=== PATIENT | female | born 1945 | race Caucasian/White ===

== ENCOUNTER 2023-10-31 12:22 | Emergency (ER) | payer MEDICARE, OTHER, SELFPAY ==
[2023-10-31 12:25] VITALS: BP 109/62
--- NOTE | 2023-10-31 12:26 | ED.GENMED ---
History of Present Illness
General
Chief Complaint: Head Injury
Time Seen by Provider: 10/31/23 12:24
History of Present Illness
History of Present Illness:
HPI: The patient presents from [facility] for evaluation after a witnessed fall. She is not on any anticoagulation or antiplatelet. She did have signs of head injury. The patient is clearly a very poor historian with advanced dementia.
EXAM:
GENERAL: Appears in no distress
HEENT: Moist oral mucosa
HEAD: There is evidence of hematoma to the right side of the face
C-SPINE: There is no midline C-spine tenderness
CARDIOVASCULAR: Regular rate and rhythm
PULMONARY: No respiratory distress, breathing is nonlabored, equal and clear breath sounds
ABDOMEN: Soft and nontender with no peritoneal signs
NEUROLOGIC: The patient has evidence of dementia, not oriented to month or place, strength equally decreased in all extremities
EXTREMITIES: The left lower extremity is held in marked internal rotation at the hip
PYSCHIATRIC: Very limited historian, poor insight and judgment
ED COURSE:
12:55 PM: I initially evaluated patient
NUMBER AND COMPLEXITY OF PROBLEMS ADDRESSED AT THE ENCOUNTER
� Chronic conditions affecting care: Advanced dementia with psychotic features
� Acute Exacerbation and/or Progression of Chronic Illness: This is an acute problem
� Differential Diagnosis includes: Scalp hematoma, hip dislocation, hip fracture, intracranial hemorrhage
AMOUNT AND/OR COMPLEXITY OF DATA TO BE REVIEWED AND ANALYZED
� I performed an independent evaluation of and my interpretation is:
EKG:
CT: CT brain personally reviewed hygromas noted
X-rays: I personally viewed x-rays. No evidence for hip dislocation or fracture.
Laboratory Studies:
Other:
� Review of other/old records: I reviewed records, the patient was seen here on 09/22/2023 that showed traumatic subarachnoid, intraventricular and SDH
� Clinical information was obtained by an independent historian: We spoke to Os[facility] and I also reviewed the notes from Osiel
� Prescriptions/Medications Considered but not given:
� Further testing considered but not performed:
RISK OF COMPLICATIONS AND/OR MORBIDITY OR MORTALITY OF PATIENT MANAGEMENT
� Social determinants of health affecting care: Comes in from [facility]
� Discussion with other providers: Given the report of hygromas on CT, I notified Dr. Martin who reviewed the images and agrees there is no need for operative intervention.
� Escalation of care including admission/observation vs risk of discharge considered: Given patient's advanced age, will obtain CT imaging of the brain. I did discuss with the nurse regarding the left hip examination and that
she holds the left lower extremity in severe internal rotation at the left hip with virtually no active range of motion. The nurse called [facility] and she apparently had a hip injury about a year ago.
Past History
Past History
ED Past Medical History: Other (Dementia)
ED Past Surgical History: Orthopedic (Right hip replaced)
Social History
Tobacco: Non-smoker
Alcohol: None
Phy Exam
Physical Exam
Physical Exam:
See HPI
Course
Orders/Labs/Results
Orders:
Orders
10/31/23 12:53
CT Head W/o Iv Contrast Urgent
Comment:
Reason For Exam: trauma dementia
10/31/23 12:55
Hip, Left 2-3 Views [CR Hip - LT w/wo Pel 2-3 Vw*] Urgent
Comment:
Reason For Exam: fall dementia; internal rotation
Include a pelvis x-ray?: Yes
10/31/23 13:01
CT Cervical Spine W/o Iv Contr Urgent
Comment:
Reason For Exam: trauma dementia
Vital Signs
Initial and Last Documented VS:
Initial Vital Signs
Temp Pulse Resp BP Pulse Ox
97.3 F 84 18 109/62 99
10/31/23 12:25 10/31/23 12:25 10/31/23 12:25 10/31/23 12:25 10/31/23 12:25
Last Documented Vital Signs
Temp Pulse Resp BP Pulse Ox
97.3 F 82 16 114/63 96
10/31/23 12:25 10/31/23 17:00 10/31/23 17:00 10/31/23 19:37 10/31/23 19:45
*Critical Care Note
Total Time (30-74mins, 75-104mins- exclusive of procedures): Not Applicable
ED Attending Note
-
Portions of this chart may have been created with voice recognition software.� Occasional wrong word or��sound alike� substitutions may have occurred due to the inherent limitations of voice recognition software.
Discharge Plan
Departure
Patient Disposition: Home (Routine Discharge)
Date of Disposition: 10/31/23
Time of Disposition: 15:21
Patient with high blood pressure during this ER visit?: Yes
Discharge Problem:
Hematoma of scalp
Prescriptions:
No Action
buspirone 15 mg tablet
15 mg PO DAILY
acetaminophen 325 mg Tablet
650 mg PO Q6HPRN PRN (Reason: Mild Pain)
magnesium hydroxide [Milk of Magnesia] 400 mg/5 mL Suspension
30 ml PO [id number] PRN (Reason: if no bm by 3rd day)
Rx Instructions:
Administer on 3rd day if no bowel movement
bisacodyl 10 mg Suppository
10 mg PA DAILYPRN PRN (Reason: Constipation)
dextromethorphan-guaifenesin 10-100 mg/5 mL Liquid
10 ml PO Q4HPRN PRN (Reason: cough)
melatonin 3 mg Tablet
3 mg PO HS
Fleet Enema 19-7 gram/118 mL Enema
118 ml PA DAILYPRN PRN (Reason: if dulcolax ineffective after 4hrs)
polyethylene glycol 3350 [HealthyLax] 17 gram powder in packet
17 g PO DAILYPRN PRN (Reason: constipation)
Critic-Aid 20-51 % Paste
1 applic TOPICAL BID
Referrals:
Conor Wilson MD [Family Provider] -
Activity Restrictions/Additional Instructions:
CAT scan of the brain shows 'hygromas'. There is no new bleeding. I discussed the hygromas with a neurosurgeon who agrees there would be no operative intervention. I see no sign of dislocation of the hip. Return here if worse
Interventions
Interventions:
*Risk Screen - Suicide Last Done: 10/31/23 12:25
*General Assessment Last Done: 10/31/23 12:25
*Neglect/Abuse Screening Last Done: 10/31/23 12:25
ED- Fall Risk Assessment Last Done: 10/31/23 19:50
*ED COVID-19 Vaccine History Last Done: 10/31/23 12:25
*Nursing Disposition Last Done: 10/31/23 20:00
ED- Neurological Assessment Last Done: 10/31/23 14:05
ED-Skin Assessment Last Done: 10/31/23 14:05
Discharge Date and Time
Discharge Date/Time: 10/31/23 20:03
[2023-10-31 13:00] VITALS: BP 115/61
[2023-10-31 15:00] VITALS: BP 112/49
[2023-10-31 17:00] VITALS: BP 104/60
[2023-10-31 19:37] VITALS: BP 114/63
== END 2023-10-31 20:03 | disposition home or self-care (01) ==
LOC: EMR 12:22
PROVIDERS: EMERGENCY PHYSICIAN Emergency Medicine; FAMILY PHYSICIAN Family Medicine
DX: S00.03XA Contusion of scalp, initial encounter (principal); S00.81XA Abrasion of other part of head, initial encounter; W19.XXXA Unspecified fall, initial encounter; F03.90 Unspecified dementia, unspecified severity, without behavioral disturbance, psychotic disturbance, mood disturbance, and anxiety; R03.0 Elevated blood-pressure reading, without diagnosis of hypertension; Z96.643 Presence of artificial hip joint, bilateral
CPT/HCPCS: 99284; 70450; 72125; 73502

== ENCOUNTER 2023-11-20 17:35 | Inpatient (IN) | payer MEDICARE, OTHER, SELFPAY ==
--- NOTE | 2023-11-20 13:20 | ED.CVA ---
History of Present Illness
General
Chief Complaint: CVA/TIA Symptoms
Source: patient
Exam Limitations: none
Time Seen by Provider: 11/20/23 13:02
Nursing documentation reviewed up to this point in time: agreed with
Onset of Stroke Symptoms
Onset of symptoms known: No
Time pt last seen normal is known: No
Travel History
Have you had any contact with someone who has COVID-19?: Unable to Answer
Do you have any symptoms of coronavirus? Fever > 100 degrees, chills, cough, shortness of breath, sore throat, loss of taste or smell, muscle aches, or headache?: Unable to Answer
History of Present Illness
History of Present Illness:
78-year-old female with a past medical history of advanced dementia presents from long term ([facility]) for evaluation of fever and lethargy. Patient is unable to meaningfully participate in history given her advanced dementia. I spoke
directly with the long term staff to obtain collateral history: Apparently this morning at breakfast they noted that she was increasingly lethargic. She is normally wheelchair-bound, disoriented but alert. This morning was falling asleep in the
chair, leaning towards the left side. They noted that she had a fever to 101 �F which was treated with Tylenol. There was a question of a facial droop as well although it was thought to be related to her fever. She was sent to the emergency room
via EMS for evaluation. They had not noticed any respiratory difficulties, nausea/vomiting/diarrhea recently.
Past History
Past History
ED Past Medical History: Other (Dementia)
ED Past Surgical History: Orthopedic (Right hip replaced)
Social History
Tobacco: Non-smoker
Alcohol: None
Review of Systems
Review of Systems
Unable to obtain full review of systems at this time due to: dementia
All Other Systems: Not applicable
Phy Exam
Physical Exam
Physical Exam:
General: Laying in bed lethargic but opens eyes to loud voice; oriented x 0; chronically ill-appearing and contracted
Head: Normocephalic, atraumatic
Eyes: Conjunctiva normal, pupils equal round and reactive to light bilaterally
Throat: Airway intact, handling secretions
Neck: Trachea midline
Lungs: Clear to auscultation bilaterally, no wheezing, rales, rhonchi
Heart: Regular rate and irregular rhythm, no murmurs, gallops, or rubs
Abd: Soft, non distended, no masses
Neuro: No clearly evident facial droop or cranial nerve deficits; she is contracted in all extremities and oriented x 0, does not follow commands consistently and verbal responses are limited
Skin: no rash
Extremities: Warm and well-perfused, contracted
Scores
Heart Failure Risk
Heart Failure Risk Score: Not Applicable
Heart Score for Chest Pain Patients
STEMI patient?: Not applicable
Withdrawal Assessment of Alcohol
Withdrawal Assessment Completed?: Not applicable
Course
Orders/Labs/Results
Orders:
Orders
11/20/23 13:19
Bedside Glucose- Treatment ONCE
11/20/23 13:20
Electrocardiogram (*1) Urgent
Reason for Study: Fatigue / Weakness
EKG- Treatment ONCE
11/20/23 13:23
CT Head W/o Iv Contrast Urgent
Comment:
Reason For Exam: change in mental status
11/20/23 13:30
CR Chest Portable - 1 View Urgent
Comment:
Reason For Exam: fever, confused
Reason Study Needs to be Portable: Unable to Transport
11/20/23 14:10
Basic Metabolic Panel Urgent
COVID-19 Antigen Urgent
Source: Nasal Swab
Complete Blood Count/With Diff Urgent
Urinalysis Reflex To Culture Urgent
Date Specimen was Collected: 11/20/23
Time Specimen was Collected: 13:36
Urine Microscopic Reflex Cult Urgent
Influenza A+B Rapid Molecular Urgent
SIMI Source: Nasal Swab
Specimen Description:
Urine Culture Urgent
SIMI Source: U
Specimen Description:
Date Specimen was Collected: 11/20/23
Time Specimen was Collected: 13:36
11/20/23 15:08
CefTRIAXone [Rocephin] 1,000 mg IV NOW STA
Abnormal Lab Results
11/20/23
14:10
WBC 4.3 L 10^3/uL
(4.8-10.8)
RBC 3.46 L 10^6/uL
(4.20-5.40)
Hgb 10.5 L g/dL
(12.0-16.0)
Hct 31.0 L %
(37.0-47.0)
Absolute Lymphs (auto) 0.6 L 10^3/uL
(1.2-3.4)
Absolute Monos (auto) 0.7 H 10^3/uL
(0.1-0.6)
Lymphocytes % 13.6 L %
(20.5-51.1)
Monocytes % 15.9 H %
(1.7-9.3)
BUN 23 H mg/dl
(7-17)
Glucose 108 H mg/dl
(70-99)
Ur Occult Blood Reflex 1+ A
(Negative)
Urine Nitrite (Reflex) Positive A
(Negative)
Leukocyte Esterase Rfl 2+ A
(Negative)
Urine RBC 3-6 A /HPF
(0-2)
Urine WBC (Reflex) 26-30 A /HPF
(0-5)
Urine Bacteria (Reflex) Many A
(Negative)
11/20/23 14:10
11/20/23 14:10
Vital Signs
Initial and Last Documented VS:
Initial Vital Signs
Temp Pulse Resp BP Pulse Ox
36.6 C 89 16 131/65 99
11/20/23 13:21 11/20/23 13:21 11/20/23 13:21 11/20/23 13:21 11/20/23 13:21
Last Documented Vital Signs
Temp Pulse Resp BP Pulse Ox
37.2 C 89 16 131/65 97
11/20/23 14:27 11/20/23 13:21 11/20/23 13:21 11/20/23 13:21 11/20/23 14:30
MDM/Problems Addressed
Differential Diagnosis Includes:
Infection, UTI, pneumonia, viral syndrome; stroke or subdural hemorrhage a consideration as well although is less likely given reported fever
MDM/Problems Addressed:
78-year-old female presents for evaluation of increased lethargy and fever today, change in mental status. Vital signs here are normal she is afebrile but received Tylenol prior to arrival. Physical exam as documented. Plan to place an IV check
labs including a CBC and a CMP, urinalysis, chest x-ray, viral swabs. Will check CT head. Check an EKG. Monitor closely reassess after the above.
Labs reviewed: CBC shows slight leukopenia with WBC of 4.3. Stable anemia. CMP no clinically significant abnormalities. Chest x-ray shows no pneumonia. Viral swabs negative. CT head negative. Urinalysis positive for nitrates, pyuria and
bacteria�there are squamous cells that could suggest contamination but without alternate source for fever and continued lethargy concern for UTI. Will treat with IV Rocephin. Given reported change in mental status will need for continued treatment
and observation. Discussed with hospitalist for admission.
Chronic conditions affecting care:
Dementia
*Radiology
Radiology exam reviewed: preliminary read by ED provider and radiology read reviewed
*Pulse Oximetry
Patient hypoxic: no
*EKG
Interpreted by ED Provider?: Yes
Heart Rate: 81
Rate: normal
Rhythm: a-fib
[place]: normal axis
Interval: normal interval
QRS Pattern: normal QRS
Ischemia: non-specific ST changes
*Critical Care Note
Total Time (30-74mins, 75-104mins- exclusive of procedures): Not Applicable
Data Reviewed
Review of Other/Old Records Reveals: Labs and Records
Source: records, ambulance crew and long term
Patient Management
Social determinants of health affecting care: Living situation
Discussion with other providers: Hospitalist (Discussed with hospitalist)
Escalation/DeEscalation of care consider admission/obs:
Admission indicated
ED Attending Note
-
Portions of this chart may have been created with voice recognition software.� Occasional wrong word or��sound alike� substitutions may have occurred due to the inherent limitations of voice recognition software.
Discharge Plan
Departure
Patient Disposition: Admit
Date of Disposition: 11/20/23
Time of Disposition: 15:14
Admit to doctor: Cox
Presentation/result/management discussed w/ accepting MD/DO: Hospitalist
Discharge Problem:
Encephalopathy, Acute UTI
Prescriptions:
No Action
buspirone 15 mg tablet
15 mg PO DAILY
melatonin 3 mg Tablet
3 mg PO HS
polyethylene glycol 3350 [HealthyLax] 17 gram powder in packet
17 g PO DAILYPRN PRN (Reason: constipation)
Critic-Aid 20-51 % Paste
1 applic TOPICAL BID
Referrals:
UNKNOWN - PT DOES,NOT KNOW [Family Provider] -
Interventions
Interventions:
*Risk Screen - Suicide Last Done: 11/20/23 13:08
*General Assessment Last Done: 11/20/23 13:08
*Neglect/Abuse Screening Last Done: 11/20/23 13:08
ED- Fall Risk Assessment Last Done: 11/20/23 14:30
*ED COVID-19 Vaccine History Last Done: 11/20/23 13:08
ED- Pulmonary Assessment Last Done: 11/20/23 14:30
ED- Neurological Assessment Last Done: 11/20/23 14:30
ED- Cardiac Assessment Last Done: 11/20/23 14:30
ED Swallowing Screen Last Done: 11/20/23 13:23
[2023-11-20 13:21] VITALS: BP 131/65
[2023-11-20 14:26] LABS: % Basophils 0.2 % (0-2); % Eosinophils 1.4 % (0-6); % Immature Granulocytes 0.2 % (0-0.5); % Lymphocytes 13.6 % (20.5-51.1); % Monocytes 15.9 % (1.7-9.3); % Neutrophils 68.7 % (42.2-75.2); Absolute Eosinophils 0.1 10^3/uL (0-0.7); Absolute Lymphocytes 0.6 10^3/uL (1.2-3.4); Absolute Monocytes 0.7 10^3/uL (0.1-0.6); Absolute Neutrophils 2.9 10^3/uL (1.4-6.5); Hemoglobin 10.5 g/dL (12.0-16.0); Mean Corp Hgb Conc. 33.9 g/dL (33.0-37.0); Mean Corpuscular Hgb 30.3 pg (27.0-31.0); Mean Corpuscular Volume 89.6 fL (81.0-99.0); Mean Platelet Volume 8.7 fL (7.4-10.4); Nucleated Red Blood Cells % 0 %; Platelet Count 264 10^3/uL (130-400); Red Blood Cell Count 3.46 10^6/uL (4.20-5.40); Red Cell Dist. Width 13.2 % (11.5-14.5); White Blood Cell Count 4.3 10^3/uL (4.8-10.8)
[2023-11-20 14:47] LABS: COVID-19 Antigen Negative (Negative)
[2023-11-20 14:49] LABS: Urine Albumin Trace (Neg - Trace); Urine Bilirubin Negative (Negative); Urine Character Clear (Clear); Urine Color Yellow; Urine Glucose Negative (Negative); Urine Ketone Negative (Negative); Urine Leukocyte 2+ (Negative); Urine Nitrite Positive (Negative); Urine Occult Blood 1+ (Negative); Urine Specific Gravity 1.015 (<1.030); Urine Urobilinogen Negative (Neg - 1+)
[2023-11-20 14:57] LABS: Blood Urea Nitrogen 23 mg/dl (7-17); Glucose 108 mg/dl (70-99); Sodium 135 mmol/L (135-145); eGFR > 60.00
[2023-11-20 14:58] LABS: Carbon Dioxide 26 mmol/L (22-30); Chloride 106 mmol/L (98-107); Urine Bacteria Many (Negative); Urine White Cell 26-30 /HPF (0-5)
[2023-11-20] MEDS: ROCEPHIN 1000 MG IV (16:02)
--- NOTE | 2023-11-20 16:41 | HPS.HSE ---
Family Physician
-
Family Physician: NOT KNOW UNKNOWN - PT DOES
Chief Complaint
-
Fever,lethargy
History of Present Illness
78-year-old with severe dementia sent in from local dementia unit for fevers and increased lethargy and change in her status.
Discussed with ER physician and also the daughter.
Patient dementia is quite severe. It got worse with her recent fall. She is afraid to ambulate so she is pretty much wheelchair-bound. She does not seems to know how to use a walker.
She apparently had fever and was lethargic at the facility. ER spoke with the facility-she was falling asleep in the chair, leaning towards the left side. She had a fever of 101 which was treated with Tylenol. There was a question about facial
droop. She is normally wheelchair-bound, disoriented but alert.
According to the daughter-patient is mostly aphasic due to dementia. Is confused all the time but not agitational normally..
Medical History
Past Medical History
Past Medical History: Reports Dementia
Past Surgical History: Reports Orthopedic (Right hip replacement)
Social History
Tobacco: Non-smoker
Alcohol: None
Drug: None
Living: Other (Dementia unit)
Family History
Family History: Not pertinent
Allergies / Home Medications
Allergies reflects when Allergies were last updated in [employer].
Home Medications with original date entered in [employer]
Allergy/Medication List:
Allergies
Allergy/AdvReac Type Severity Reaction Status Date / Time
No Known Allergies Allergy Verified 09/17/23 11:40
Home Medications
buspirone 15 mg tablet 15 mg PO DAILY Mental Health/Anxiety 08/01/22
melatonin 3 mg tablet 3 mg PO HS sleep 10/02/23
polyethylene glycol 3350 17 gram oral powder packet (HealthyLax) 17 g PO DAILYPRN PRN constipation 10/02/23
zinc oxide-petrolatum 20 %-51 % topical paste (Critic-Aid) 1 applic topical BID sacrum/buttucks 10/31/23
Review of Systems
-
Unable to obtain full review of systems at this time due to: Dementia
Physical Exam
Vital Signs
Vital Signs
Temp Pulse Resp BP Pulse Ox
98.9 F 89 16 131/65 97
11/20/23 14:27 11/20/23 13:21 11/20/23 13:21 11/20/23 13:21 11/20/23 14:30
Physical Exam
General: No Apparent Distress
HEENT: Moist mucous membranes
Respiratory: Clear
Cardiac: S1/S2 and Regular Rhythm
GI: Soft, Non Distended and Normal Bowel Sounds
Neuro: No Awake (Lethargic but arousable) or No Motor Deficits (Lower extremity contractures noted)
Psych: Calm
Laboratory Results
-
11/20/23 14:10
11/20/23 14:10
Laboratory Results
Total Bilirubin Cancelled 11/20/23 14:10
AST Cancelled 11/20/23 14:10
ALT Cancelled 11/20/23 14:10
Alkaline Phosphatase Cancelled 11/20/23 14:10
Data Reviewed
-
Lab Data: Labs Reviewed by me
Impression/Plan
-
Fever lethargic with change in status compared to her baseline dementia-suspect UTI . Admit to hospital. Started empirical ceftriaxone. Start on IV fluids. Follow culture data. CT of the head is negative for any acute findings.
Chronic normocytic anemia-continue to follow.
Dementia-watch for any behavioral disturbance. Baseline she is wheelchair-bound and nonverbal
DNR
Discussed with daughter on the phone regarding clinical findings and treatment plan
[2023-11-20 17:51] VITALS: BP 132/64
[2023-11-20 19:14] VITALS: BP 120/69
[2023-11-20 21:32] VITALS: BP 124/65; BMI 15.2
[2023-11-20] MEDS: D5/0.45%NACL 1000 IV (21:50)
[2023-11-20] MEDS: MELATONIN PO (22:48)
[2023-11-20] MEDS: LOVENOX 40 MG SC (22:52)
[2023-11-20 23:00] VITALS: BP 125/73
[2023-11-21 07:00] VITALS: BP 101/76
--- NOTE | 2023-11-21 07:15 | PTCARENOTE ---
Patient arrived on unit @0 via stretcher from ED, transferred from stretcher to bed with assist x2. Patient lethargic, confused, skin's assessment completed.
[2023-11-21 08:08] LABS: Hematocrit 31.2 % (37.0-47.0); Hemoglobin 10.5 g/dL (12.0-16.0); Mean Corp Hgb Conc. 33.7 g/dL (33.0-37.0); Mean Corpuscular Hgb 29.4 pg (27.0-31.0); Mean Corpuscular Volume 87.4 fL (81.0-99.0); Mean Platelet Volume 8.4 fL (7.4-10.4); Platelet Count 244 10^3/uL (130-400); Red Blood Cell Count 3.57 10^6/uL (4.20-5.40); White Blood Cell Count 3.4 10^3/uL (4.8-10.8)
[2023-11-21] MEDS: D5/0.45%NACL 1000 IV ×2 (08:34→16:41)
[2023-11-21] MEDS: ZINC OXIDE OINTMENT 1 APPLIC TOPICAL ×2 (08:34→21:36)
[2023-11-21 08:37] LABS: ALT (SGPT) 11 U/L (0-35); AST (SGOT) 22 U/L (14-36); Albumin 3.4 g/dl (3.5-5.0); Alkaline Phosphatase 78 U/L (38-126); Blood Urea Nitrogen 14 mg/dl (7-17); Calcium 9.1 mg/dl (8.4-10.2); Carbon Dioxide 25 mmol/L (22-30); Chloride 107 mmol/L (98-107); Estimated Creatinine Clearance 47 ml/min; Glucose 113 mg/dl (70-99); Potassium 4.2 mmol/L (3.5-5.1); Sodium 135 mmol/L (135-145); Total Bilirubin 1.1 mg/dl (0.2-1.3); Total Protein 5.9 g/dl (6.3-8.2); eGFR > 60.00
--- NOTE | 2023-11-21 09:20 | PTOTSP ---
Speech Language Pathology
Pt seen for clinical bedside swallow evaluation. P.O. trials of puree, regular solids, and thin liquids provided. Pt with difficulty utilizing straw initially from cognitive standpoint. Attempted liquids via pipetted straw, and pt spit out bolus.
After trials of puree, pt then able to utilize straw with verbal cueing. Adequate mastication, bolus formation, and A-P transit noted. No overt signs of aspiration.
Recommend:
(1) Regular solids/thin liquids (pt's baseline diet)
(2) Aspiration precautions: full assist, slow rate, sit upright, ensure oral cavity clear post P.O. intake
(3) Meds crushed in puree
(4) SILK PRESSER to continue to follow, likely briefly
--- NOTE | 2023-11-21 10:19 | W.PN.HOSP.TC ---
Today's Communication/Plan
-
cw abx
start on diet
follow Ucx data
Assessment / Plan
Assessment / Plan
Fever, lethargic with change in status compared to her baseline dementia-suspect UTI .� � Started empirical ceftriaxone.� Started on IV fluids-passed swallow eval ;will start on diet and if adequate dc fluids.� Follow culture data.� CT of the head
is negative for any acute findings.
Chronic normocytic anemia-continue to follow. HH stable
Dementia-watch for any behavioral disturbance.� Baseline she is wheelchair-bound and nonverbal. No agitation
DNR
Anticipated Discharge: Within 24 hours
Subjective/Interval History
-
Date of Service: November 21, 2023
More alert today.
Responds to vocal commands but nonverbal which is her baseline.
Passed bedside speech eval.
Objective Data
-
Labs:
Laboratory Results
11/21/23
07:45
WBC 3.4 L
Hgb 10.5 L
Hct 31.2 L
Plt Count 244
Sodium 135
Potassium 4.2
Chloride 107
Carbon Dioxide 25
BUN 14
Creatinine 0.6
Glucose 113 H
Calcium 9.1
Total Bilirubin 1.1
AST 22
ALT 11
Alkaline Phosphatase 78
Vital Signs:
Vital Signs
Temp Pulse Resp BP Pulse Ox
99.0 F 75 17 101/76 95
11/21/23 07:00 11/21/23 07:00 11/21/23 07:00 11/21/23 07:00 11/21/23 07:00
Review of Systems
-
Unable to obtain full review of systems at this time due to: Dementia
Physical Exam
-
General: No Apparent Distress
HEENT: Moist Mucous Membranes
Respiratory: Clear to Auscultation
Cardiac: Regular Rhythm and S1/S2
GI: Soft and Other (Difficult exam as above legs are contracted)
Neuro: Awake; Negative Alert or No Motor Deficits (Lower limb contractures noted)
Psych: Calm; Negative Agitated
Data Reviewed
-
Labs: Labs Reviewed by me
[2023-11-21 10:46] VITALS: BP 167/87; PULSE 71; O2SAT 99
[2023-11-21 10:47] VITALS: BP 169/87; PULSE 71; O2SAT 98
[2023-11-21 12:08] VITALS: BMI 15.2
[2023-11-21 15:00] VITALS: BP 135/80
--- NOTE | 2023-11-21 15:56 | CM ---
Chart reviewed
Pt poor historian - hx dementia - Spoke with pts daughter
Pt lives at [facility] [place] in Memory care unit
Baseline per daughter is adl's with assist. Pt mainly uses wheel chair, can ambulate with assist - refuses to use walker per daughter
PCP - through [facility] per daughter
Pharm - [facility]
Plan - Anticipate return to previous setting
[2023-11-21] MEDS: ROCEPHIN 1000 MG IV (16:38)
[2023-11-21] MEDS: STERILE WATER FOR INJECTION 10 ML IV (16:38)
[2023-11-21] MEDS: LOVENOX 40 MG SC (16:40)
[2023-11-21] MEDS: MELATONIN 3 MG PO (21:36)
[2023-11-21 23:00] VITALS: BP 121/81
[2023-11-22] MEDS: D5/0.45%NACL IV ×2 (05:36→16:08)
[2023-11-22] MEDS: D5/0.45%NACL 1000 IV (06:12)
[2023-11-22 07:00] VITALS: BP 141/75
--- NOTE | 2023-11-22 11:20 | W.PN.HOSP.TC ---
Addendum entered and electronically signed by Corby Cox MD 11/24/23 16:09:
�88 lbs 3.2 oz BMI 15.1 underweight range, 3/6.� Pts weight previous admission 112 lb 7/9 reflective of 24 lb (21%) weight loss in 8 months, significant. ....� Pt with protrusion of clavicle, temporal wasting (severe), apparent ribs, quad and calf
muscle wasting as well as fat loss over triceps.With weight loss of > 20% in 1 year and observed muscle and fat wasting�pt meets AND/ASPEN criteria for severe protein calorie malnutrition of chronic illness. '
Addendum entered and electronically signed by Corby Cox MD 11/24/23 16:08:
Change in MS sec to TME from UTI which improved with tx of UTI
Original Note:
Today's Communication/Plan
-
DC
Assessment / Plan
Assessment / Plan
Fever, lethargic with change in status compared to her baseline dementia-suspect UTI .� Improved with UTI treatments with ceftriaxone.� Urine culture shows pansensitive E. coli-will switch to oral Augmentin on discharge. CT of the head is negative
for any acute findings. She is improved with regards to mentation and as well as oral intake.
Chronic normocytic anemia-continue to follow. HH stable
Dementia-watch for any behavioral disturbance.� Baseline she is wheelchair-bound and nonverbal. No agitation
Medically stable for discharge to dementia unit. Discussed with the daughter and updated the clinical improvement in the discharge plan.
DNR
Anticipated Discharge: Today
Subjective/Interval History
-
Date of Service: November 22, 2023
Much more alert today. Had a good amount of breakfast today.
Objective Data
-
Vital Signs:
Vital Signs
Temp Pulse Resp BP Pulse Ox
97.9 F 78 17 141/75 96
11/22/23 07:00 11/22/23 07:00 11/22/23 07:00 11/22/23 07:00 11/22/23 07:00
I&O
11/21/23 11/22/23 11/23/23
06:59 06:59 06:59
Intake Total 1300 / 1300
Balance 1300 / 1300
Review of Systems
-
Unable to obtain full review of systems at this time due to: Dementia
Physical Exam
-
General: No Apparent Distress
HEENT: Moist Mucous Membranes
Respiratory: Clear to Auscultation
Cardiac: Regular Rhythm and S1/S2
GI: Soft
Neuro: Awake and Alert
Psych: Calm
Data Reviewed
-
Labs: Labs Reviewed by me
--- NOTE | 2023-11-22 11:28 | W.DS.TRANS ---
DC Summary - Retention Manager
-
Discharge Instructions:
Discharge Diagnosis/Procedures UTI
Diet Regular
Activity As tolerated
Driving Restrictions No driving
Bathing Restrictions None
Instructions:
Stand-Alone Forms:
Changes to Home Medications: Yes
Discharge Medications:
DC Medications w/original date entered in [employer]
buspirone 15 mg tablet 15 mg PO DAILY Mental Health/Anxiety 08/01/22
melatonin 3 mg tablet 3 mg PO HS sleep 10/02/23
polyethylene glycol 3350 17 gram oral powder packet (HealthyLax) 17 g PO DAILYPRN PRN constipation 10/02/23
zinc oxide-petrolatum 20 %-51 % topical paste (Critic-Aid) 1 applic topical BID sacrum/buttucks 10/31/23
amoxicillin 875 mg-potassium clavulanate 125 mg tablet 1 tab PO BID #8 tabs 11/22/23
Home Medication Changes
New med - augmentin
Pending Results: No
--- NOTE | 2023-11-22 11:28 | W.DCSUMMARY ---
Discharge Summary
Discharge Data
Date of Admission: 11/20/23
Date of Discharge: 11/22/23
-
Pending Results: No
Hospital Course
Primary diagnosis:
Urinary tract infection with E. coli
Chronic normocytic anemia
Secondary diagnosis:
Dementia
Hospital course:
78-year-old female with history of dementia living in a local dementia unit was sent in because of fever, lethargy and change in the status compared to baseline dementia. Initial suspicion was in UTI based on abnormal urinalysis. She was
empirically started on ceftriaxone with good response and clinical improvement. She was eating again. Her mentation and cognition is better. One of the Baseline dementia feature is aphasia along with other dementia symptoms .
E. coli was pansensitive and antibiotics were switched to Augmentin.
Discharge Plan
-
Patient Disposition: Assisted Living
Discharge Diagnosis/Procedures: UTI
Diet: Regular
Activity: As tolerated
Driving Restrictions: No driving
Bathing Restrictions: None
Referrals:
UNKNOWN - PT DOES,NOT KNOW [Family Provider] - in less than 1 week
Prescriptions:
New
amoxicillin-pot clavulanate 875-125 mg tablet
1 tab PO BID Qty: 8 0RF
Rx Instructions:
FOR 4 DAYS
Continued
buspirone 15 mg tablet
15 mg PO DAILY
melatonin 3 mg Tablet
3 mg PO HS
polyethylene glycol 3350 [HealthyLax] 17 gram powder in packet
17 g PO DAILYPRN PRN (Reason: constipation)
Critic-Aid 20-51 % Paste
1 applic TOPICAL BID
Discharge Orders:
Discharge Patient (As Directed); Ordered 11/22/23
Ordered By: Corby Cox
[2023-11-22] MEDS: ZINC OXIDE OINTMENT 1 APPLIC TOPICAL (11:45)
--- NOTE | 2023-11-22 13:50 | PN.CDI ---
CDI
- -
CDI:
Physician Documentation Request
Admit Date: 11/20/23 17:35
Dear Doctor Kenny,
Please review the following and provide your response in the progress notes.
Clinical Indicators:
Pt admitted with lethargy/AMS/UTI /HX of advanced Dementia
Pt BMI 15.1
Nutrition consult 11/20, ' CBW: 88 lbs 3.2 oz BMI 15.1 underweight range, 11/19. Pts weight previous admission 112 lb 03/24 reflective of 24 lb (21%) weight loss in 8 months, significant. .... Pt with protrusion of clavicle, temporal wasting (severe),
apparent ribs, quad and calf muscle wasting as well as fat loss over triceps.With weight loss of > 20% in 1 year and observed muscle and fat wasting pt meets AND/ASPEN criteria for severe protein calorie malnutrition of chronic illness. '
Based on the information, which of the following most accurately represents the patient's nutritional status?
Severe Protein Calorie Malnutrition
Moderate Malnutrition
Other (please specify)
Dennison Criteria (ACP Hospitalist 2017)
2 or more criteria must be present for either
non severe or severe malnutrition
Note that the criteria differs related to the
presence of an acute or chronic illness
Acute Illness Chronic Illness
Energy Intake Non Severe: <75% for >7 days Non Severe: <75% for >1 month
Severe: <50% for >5 days Severe: <75% for >1 month
Weight Loss Non Severe: 1-2% over 1 week Non Severe: 5% over 1 month
5% over 1 month 7.5% over 3 months
7.5% over 3 months 10% over 6 months
1 year N/A 20% over 1 year
Severe: >2% over 1 week Severe: >5% over 1 month
>5% over 1 month >7.5% over 3 months
>7.5% over 3 months >10% over 6 months
1 year N/A >20% over 1 year
Body Fat Non Severe: Mild Decrease Non Severe: Mild Loss
Severe: Moderate Decrease Severe: Severe Loss
Muscle Mass Non Severe: Mild Decrease Non Severe: Mild Loss
Severe: Moderate Decrease Severe: Severe Loss
Fluid Accumulation Non Severe: Mild Accumulation Non Severe: Mild Accumulation
Severe: Moderate to severe Severe: Moderate to severe
accumulation accumulation
Reduced Reel Cart Operator Strength Non Severe: N/A Non Severe: N/A
Severe: Measurably reduced Severe: Measurably reduced
Use of terms such as suspected, likely, concern for, or probable (associated with a specific diagnosis that is being evaluated, monitored, or treated as if it exists) are acceptable and can be coded in the inpatient setting, when documented at the
time of discharge.
Thank you,
Nicol Cloud RN
CDI Specialist
[place] [facility]
Please use your independent medical judgment in providing your response.
--- NOTE | 2023-11-22 13:56 | PN.CDI ---
CDI
- -
CDI:
Physician Documentation Request
Admit Date: 11/20/23 17:35
Dear Doctor Kenny,
Please review the following and provide your response in the progress notes.
Clinical Indicators:
Pt admitted with Pt admitted with lethargy/AMS/UTI /HX of advanced Dementia
Documented per ED, ' Apparently this morning at breakfast they noted that she was increasingly lethargic. She is normally wheelchair-bound, disoriented but alert. This morning was falling asleep in the chair, leaning towards the left side. They
noted that she had a fever to 101 .... General: Laying in bed lethargic but opens eyes to loud voice...Discharge Problem: Encephalopathy, Acute UTI..'
Documented throughout the record ,' Fever, lethargic with change in status compared to her baseline dementia-suspect UTI ....'
Please specify the known or suspected type of the documented encephalopathy.
Metabolic
Toxic metabolic
Other
Use of terms such as suspected, likely, concern for, or probable (associated with a specific diagnosis that is being evaluated, monitored, or treated as if it exists) are acceptable and can be coded in the inpatient setting, when documented at the
time of discharge.
Thank you,
Nicol Cloud RN
CDI Specialist
[place] [facility]
Please use your independent medical judgment in providing your response.
--- NOTE | 2023-11-22 13:57 | CM ---
Addendum entered by Blanca rBown 11/22/23 14:36:

Report #[phone]
Transport scheduled for 5:45PM
Facility and pts daughter aware
Original Note:
Informed pt medically ready for d/c
Called [facility] at [place] [phone]
Spoke with Pascual - aware pt will return today
CM attempted to reach pts daughter - LM on [phone]
Plan - pt to return to [facility]
Report - [phone]
Fax - [phone]
[2023-11-22 15:00] VITALS: BP 124/70
[2023-11-22] MEDS: STERILE WATER FOR INJECTION IV (16:08)
[2023-11-22] MEDS: ROCEPHIN IV (16:08)
[2023-11-22] MEDS: LOVENOX SC (16:57)
== END 2023-11-22 18:14 | disposition home or self-care (01) | DRG 689 ==
LOC: 3 WEST ACU 17:35
PROVIDERS: ADMITTING PHYSICIAN Internal Medicine; EMERGENCY PHYSICIAN Emergency Medicine
DX: N39.0 Urinary tract infection, site not specified (principal); E43 Unspecified severe protein-calorie malnutrition; G92.8 Other toxic encephalopathy; R47.01 Aphasia; Z68.1 Body mass index [BMI] 19.9 or less, adult; B96.20 Unspecified Escherichia coli [E. coli] as the cause of diseases classified elsewhere; D64.9 Anemia, unspecified; F03.C0 Unspecified dementia, severe, without behavioral disturbance, psychotic disturbance, mood disturbance, and anxiety; Z66 Do not resuscitate
CPT/HCPCS: 51701; 70450; 71045; 80048; 80053; 81003; 81015; 85025; 85027; 87070; 87077; 87086; 87186; 87502; 87811; 92610; 93005; 96374; 97163; 97167; 99285

== ENCOUNTER 2024-01-11 08:21 | Emergency (ER) | payer MEDICARE, OTHER, SELFPAY ==
[2024-01-11 08:40] VITALS: BP 103/67
--- NOTE | 2024-01-11 09:15 | ED.GENMED ---
History of Present Illness
General
Chief Complaint: Fall
Source: records
Exam Limitations: dementia
Time Seen by Provider: 01/11/24 08:49
Travel History
Have you had any contact with someone who has COVID-19?: No
Do you have any symptoms of coronavirus? Fever > 100 degrees, chills, cough, shortness of breath, sore throat, loss of taste or smell, muscle aches, or headache?: No
History of Present Illness
History of Present Illness:
78-year-old female apparently found on the floor next to her bed. Unwitnessed fall. Significant dementia. Only noted with some mild swelling to her right cheek
Past History
Past History
ED Past Medical History: Other (Dementia)
ED Past Surgical History: Gynecological and Orthopedic (Right hip replaced)
Social History
Tobacco: Non-smoker
Alcohol: None
Review of Systems
Review of Systems
Unable to obtain full review of systems at this time due to: dementia
All Other Systems: Not applicable
Phy Exam
Physical Exam
Physical Exam:
TRAUMA EXAM:
VITAL SIGNS: Vital signs reviewed, significant dementia. Will interact but does not follow commands
DISTRESS: No active disease
EYES: Pupils reactive, no orbital trauma
NOSE: No deformity or epistaxis
FACE AND SCALP: No scalp trauma, external canals no blood. Mild contusion to the right zygoma
NECK: Supple nontender
BACK: Back nontender, pelvis stable to compression
RESPIRATORY: No distress, breath sounds normal, no tender chest wall
CARDIAC: No murmur, pulses equal and strong
ABDOMEN: Soft nontender bowel sounds normal
SKIN: Skin intact no bleeding, color normal
EXTREMITIES: Difficult to evaluate. Fights all evaluation. Both legs flexed at the knees. Will fight arm evaluation however does not appear to have any obvious deformity or shortening. No obvious bruising or ecchymosis. No open wounds.
NEUROLOGICAL: Alert, grossly nonfocal. Does not follow commands.
PSYCH: Mood affect normal
Course
Orders/Labs/Results
Orders:
Orders
01/11/24 08:53
CT Cervical Spine W/o Iv Contr Urgent
Comment:
Reason For Exam: trauma
CT Facial Bones W/o Iv Contras Urgent
Comment:
Reason For Exam: trauma
CT Head W/o Iv Contrast Urgent
Comment:
Reason For Exam: trauma
Cardiac Monitoring- Treatment ONCE
CR Chest - 2 Views Urgent
Comment:
Reason For Exam: trauma
Pelvis, 1 or 2 Views CR [CR Pelvis - 1 Or 2 Views ] Urgent
Comment:
Reason For Exam: trauma
Vital Signs
Initial and Last Documented VS:
Initial Vital Signs
Temp Pulse Resp BP Pulse Ox
98.9 F 72 18 103/67 99
01/11/24 08:40 01/11/24 08:40 01/11/24 08:40 01/11/24 08:40 01/11/24 08:40
Last Documented Vital Signs
Temp Pulse Resp BP Pulse Ox
98.9 F 72 18 103/67 99
01/11/24 08:40 01/11/24 08:40 01/11/24 08:40 01/11/24 08:40 01/11/24 08:40
MDM/Problems Addressed
Differential Diagnosis Includes:
Only obvious injury is a minimal contusion to the right zygoma. However patient is very difficult evaluation due to her dementia and being noncooperative. Will get a CT of head facial cervical spine. Chest x-ray and pelvis x-ray.
*Radiology
Radiology exam reviewed: radiology read reviewed (Note no acute findings. Degenerative changes. Sinusitis.)
*Pulse Oximetry
Patient hypoxic: no
*Critical Care Note
Total Time (30-74mins, 75-104mins- exclusive of procedures): Not Applicable
Data Reviewed
Review of Other/Old Records Reveals: Labs, Records and Testing
Update Note
Update Note:
No serious issues found related to the fall. Patient medically stable and at baseline. This was just length with daughter. Discharged to follow-up
ED Attending Note
-
Portions of this chart may have been created with voice recognition software.� Occasional wrong word or��sound alike� substitutions may have occurred due to the inherent limitations of voice recognition software.
Discharge Plan
Departure
Patient Disposition: Custodial/SNF
Date of Disposition: 01/11/24
Time of Disposition: 10:22
Patient with high blood pressure during this ER visit?: No
Discharge Problem:
Fall evaluation, Facial contusion, History of dementia, Incidental sinusitis
Instructions: Head Injury in Adults (DC), Contusion (DC), Preventing falls in adults
Prescriptions:
No Action
buspirone 15 mg tablet
15 mg PO DAILY
melatonin 3 mg Tablet
3 mg PO HS
polyethylene glycol 3350 [HealthyLax] 17 gram powder in packet
17 g PO DAILYPRN PRN (Reason: constipation)
acetaminophen 325 mg Tablet
650 mg PO Q6H PRN (Reason: pain)
aspirin 325 mg Tablet
325 mg PO DAILY
magnesium hydroxide [Milk of Magnesia] 400 mg/5 mL Suspension
15 ml PO DAILY PRN (Reason: constipation)
bisacodyl 10 mg Suppository
10 mg CO DAILY PRN (Reason: constipation)
Enema 19-7 gram/118 mL Enema
118 ml CO DAILY PRN (Reason: constipation)
Nuplazid 34 mg Capsule
34 mg PO DAILY
Referrals:
Chani Villegas DO [Family Provider] - Follow up in 2-3 days
Interventions
Interventions:
*Risk Screen - Suicide Last Done: 01/11/24 08:40
*General Assessment Last Done: 01/11/24 08:40
*Neglect/Abuse Screening Last Done: 01/11/24 08:40
Discharge Date and Time
Print Language: KOREAN
[2024-01-11 11:53] VITALS: BP 125/78
== END 2024-01-11 11:59 ==
LOC: EMR 08:21
PROVIDERS: EMERGENCY PHYSICIAN Emergency Medicine; FAMILY PHYSICIAN Hospitalist
DX: S00.83XA Contusion of other part of head, initial encounter (principal); W19.XXXA Unspecified fall, initial encounter; J01.30 Acute sphenoidal sinusitis, unspecified; F03.90 Unspecified dementia, unspecified severity, without behavioral disturbance, psychotic disturbance, mood disturbance, and anxiety
CPT/HCPCS: 99285; 70450; 70486; 71046; 72125; 72170

== ENCOUNTER 2024-02-01 10:59 | Inpatient (IN) | payer MEDICARE, OTHER, SELFPAY ==
[2024-01-31] VITALS (8 sets, daily range): BP systolic 107–148; BP diastolic 56–100
--- NOTE | 2024-01-31 14:51 | ED.GENMED ---
History of Present Illness
General
Chief Complaint: Urinary Symptoms
Source: patient, ambulance crew and shelter records
Exam Limitations: clinical condition, non verbal-adult, altered mental status and dementia
Time Seen by Provider: 01/31/24 14:35
Nursing documentation reviewed up to this point in time: agreed with
Travel History
Have you had any contact with someone who has COVID-19?: No
Do you have any symptoms of coronavirus? Fever > 100 degrees, chills, cough, shortness of breath, sore throat, loss of taste or smell, muscle aches, or headache?: Yes
Symptoms:: fever
History of Present Illness
History of Present Illness:
78-year-old female from dementia unit decreased p.o. intake, confusion here she is febrile does not offer any meaningful history prior cultures noted had a E. coli UTI pansensitive on a prior visit
Past History
Past History
ED Past Medical History: Other (Dementia)
ED Past Surgical History: Gynecological and Orthopedic (Right hip replaced)
Social History
Tobacco: Non-smoker
Alcohol: None
Living: shelter
Employment: Not employed
Family History
Family History: Unable to obtain
Review of Systems
Review of Systems
Unable to obtain full review of systems at this time due to: dementia
All Other Systems: Not applicable
Phy Exam
Physical Exam
Physical Exam:
Physical Exam
General: Febrile demented female
Neck: Dry lips
Heart: Tachycardic
Lungs: No wheeze
Abdomen: Nontender
Neuro: Demented response to stimuli
Skin: no rash
Psychiatric: Unable to assess
Extremities: no edema.
Course
Orders/Labs/Results
Orders:
Orders
01/31/24 14:19
Electrocardiogram (*1) Urgent
Reason for Study: Chest Pain
Cardiac Monitoring- Treatment ONCE
EKG- Treatment ONCE
IV Insert/Care/Rem.- Treatment PRN
Complete Blood Count/With Diff Urgent
Comprehensive Metabolic Panel Urgent
Lactic Acid Urgent
01/31/24 14:20
Urinalysis Reflex To Culture Urgent
Date Specimen was Collected: 01/31/24
Time Specimen was Collected: 14:20
Comment: straight cath
01/31/24 14:30
Blood Culture Q30M
SIMI Source: Blood/Venous
Specimen Description:
Date Specimen was Collected: 01/31/24
Time Specimen was Collected: 14:19
01/31/24 14:35
0.9% Sodium Chloride 1000 ml [Nss] 2,000 ml IV BOLUS
Acetaminophen [Tylenol/Feverall] 650 mg RECTAL NOW STA
01/31/24 14:48
CR Chest Portable - 1 View Urgent
Comment:
Reason For Exam: fever
Reason Study Needs to be Portable: Patient Unstable
01/31/24 14:49
COVID-19 Antigen Urgent
Source: Nasal Swab
CefTRIAXone [Rocephin] 1,000 mg IV NOW STA
01/31/24 14:50
Influenza A+B Rapid Molecular Urgent
SIMI Source: Nasal Swab
Specimen Description:
01/31/24 15:00
Blood Culture Q30M
SIMI Source: Blood/Venous
Specimen Description:
Date Specimen was Collected: 01/31/24
Time Specimen was Collected: 14:19
Vital Signs
Initial and Last Documented VS:
Initial Vital Signs
Temp Pulse Resp Pulse Ox
101.8 F H 120 18 97
01/31/24 14:25 01/31/24 14:25 01/31/24 14:25 01/31/24 14:25
Last Documented Vital Signs
Temp Pulse Resp Pulse Ox
101.8 F H 120 18 97
01/31/24 14:25 01/31/24 14:25 01/31/24 14:25 01/31/24 14:25
MDM/Problems Addressed
Differential Diagnosis Includes:
UTI bacteremia pneumonia influenza COVID viral syndrome
MDM/Problems Addressed:
Fever confusion
Chronic conditions affecting care:
Dementia fever
Acute Exacerbation and/or Progression of Chronic Illness:
Dementia fever
*Radiology
Radiology exam reviewed: preliminary read by ED provider
*Pulse Oximetry
Patient hypoxic: no
*Home Health Travel Pt Interpretation
Rate: tachycardiac
Interpretation: abnormal
Heart Rate: 120
Rhythm: sinus
*Critical Care Note
Total Time (30-74mins, 75-104mins- exclusive of procedures): 30
ED Attending Note
-
Portions of this chart may have been created with voice recognition software.� Occasional wrong word or��sound alike� substitutions may have occurred due to the inherent limitations of voice recognition software.
Discharge Plan
Departure
Prescriptions:
No Action
buspirone 15 mg tablet
15 mg PO DAILY
melatonin 3 mg Tablet
3 mg PO HS
polyethylene glycol 3350 [HealthyLax] 17 gram powder in packet
17 g PO DAILYPRN PRN (Reason: constipation)
acetaminophen 325 mg Tablet
650 mg PO Q6H PRN (Reason: pain)
aspirin 325 mg Tablet
325 mg PO DAILY
magnesium hydroxide [Milk of Magnesia] 400 mg/5 mL Suspension
15 ml PO DAILY PRN (Reason: constipation)
bisacodyl 10 mg Suppository
10 mg DC DAILY PRN (Reason: constipation)
Enema 19-7 gram/118 mL Enema
118 ml DC DAILY PRN (Reason: constipation)
Nuplazid 34 mg Capsule
34 mg PO DAILY
Discharge Date and Time
Print Language: ESTONIAN
[2024-01-31] MEDS: TYLENOL/FEVERALL 650 MG RECTAL ×2 (14:54→18:32)
[2024-01-31] MEDS: NSS 2000 IV (15:08)
[2024-01-31] MEDS: ROCEPHIN 1000 MG IV (15:09)
[2024-01-31 15:20] LABS: % Basophils 0.2 % (0-2); % Eosinophils 0.2 % (0-6); % Immature Granulocytes 0.3 % (0-0.5); % Monocytes 8.4 % (1.7-9.3); % Neutrophils 85.9 % (42.2-75.2); Absolute Lymphocytes 0.5 10^3/uL (1.2-3.4); Absolute Monocytes 0.8 10^3/uL (0.1-0.6); Absolute Neutrophils 8.3 10^3/uL (1.4-6.5); Hematocrit 29.6 % (37.0-47.0); Hemoglobin 10.5 g/dL (12.0-16.0); Mean Corp Hgb Conc. 35.5 g/dL (33.0-37.0); Mean Corpuscular Hgb 29.7 pg (27.0-31.0); Mean Corpuscular Volume 83.6 fL (81.0-99.0); Nucleated Red Blood Cells % 0 %; Red Blood Cell Count 3.54 10^6/uL (4.20-5.40); Red Cell Dist. Width 13.2 % (11.5-14.5); White Blood Cell Count 9.7 10^3/uL (4.8-10.8)
[2024-01-31 15:22] LABS: Lactic Acid 1.3 mmol/L (0.7-2.0)
[2024-01-31 15:24] LABS: ALT (SGPT) 11 U/L (0-35); AST (SGOT) 18 U/L (14-36); Albumin 3.7 g/dl (3.5-5.0); Alkaline Phosphatase 63 U/L (38-126); Blood Urea Nitrogen 22 mg/dl (7-17); Calcium 9.3 mg/dl (8.4-10.2); Carbon Dioxide 26 mmol/L (22-30); Chloride 106 mmol/L (98-107); Glucose 116 mg/dl (70-99); Potassium 4.1 mmol/L (3.5-5.1); Sodium 139 mmol/L (135-145); Total Bilirubin 1.2 mg/dl (0.2-1.3); Total Protein 6.4 g/dl (6.3-8.2); eGFR > 60.00
[2024-01-31 15:41] LABS: Urine Albumin Negative (Neg - Trace); Urine Bilirubin Negative (Negative); Urine Character Slightly Cloudy (Clear); Urine Color Yellow; Urine Glucose Negative (Negative); Urine Ketone Negative (Negative); Urine Leukocyte 2+ (Negative); Urine Nitrite Positive (Negative); Urine Occult Blood 1+ (Negative); Urine Urobilinogen Negative (Neg - 1+)
[2024-01-31 15:48] LABS: COVID-19 Antigen Negative (Negative)
--- NOTE | 2024-01-31 16:01 | HPS.HSE ---
Family Physician
-
Family Physician: [facility] UNKNOWN - PT NOT
Chief Complaint
-
fever, not eating
History of Present Illness
Patient is an 78-year-old female who is not contributing at all to her medical history or why she is here. Review of records and from the emergency department notes that she has dementia and is from [place] [facility] assisted living. Reportedly, she has
decreased p.o. intake and fevers. Workup in the emergency department shows no chest x-ray done, white blood cell count normal, no urinalysis obtained, COVID and influenza are negative. Patient is being brought in for fever and refusing to eat.
Medical History
Past Medical History
Past Medical History: Reports Other
Additional Past Medical History:
Vascular dementia
Protein calorie malnutrition
Past Surgical History: Reports Other
Additional Past Surgical History:
Unknown
Social History
Unable to obtain full social history at this time due to: Dementia
Family History
Family History: Unable to Obtain
Allergies / Home Medications
Allergies reflects when Allergies were last updated in [facility].
Home Medications with original date entered in [facility]
Allergy/Medication List:
Allergies
Allergy/AdvReac Type Severity Reaction Status Date / Time
No Known Allergies Allergy Verified 01/31/24 14:31
Home Medications
buspirone 15 mg tablet 15 mg PO DAILY Mental Health/Anxiety 08/01/22
dimethicone 1 % topical cream (Remedy Nutrashield) 1 applic topical BID 01/31/24
melatonin 5 mg chewable tablet 5 mg PO HS 01/31/24
Review of Systems
-
Unable to obtain full review of systems at this time due to: Dementia
Physical Exam
Vital Signs
Vital Signs
Temp Pulse Resp BP Pulse Ox
101.8 F H 113 13 148/81 96
01/31/24 14:25 01/31/24 15:45 01/31/24 15:45 01/31/24 15:12 01/31/24 15:45
Physical Exam
General: Appears Chronically Ill and Cachectic
HEENT: NormoCephalic and Anicteric; No Oxygen
Respiratory: Clear; No Wheezes, Rales or Rhonchi
Cardiac: S1/S2 and Regular Rhythm; No Murmur
GI: Normal Bowel Sounds and Other (Limited exam this patient is curled in the position--where I could palpate was nontender)
Musculoskeletal: No Clubbing, No Cyanosis, No Edema and Other (Bruise on her right upper thigh laterally)
Neuro: Awake; No AO x 3
Psych: Calm
Laboratory Results
-
01/31/24 14:49
01/31/24 14:49
Laboratory Results
Lactic Acid 1.3 mmol/L (0.7-2.0) 01/31/24 14:49
Total Bilirubin 1.2 mg/dl (0.2-1.3) 01/31/24 14:49
AST 18 U/L (14-36) 01/31/24 14:49
ALT 11 U/L (0-35) 01/31/24 14:49
Alkaline Phosphatase 63 U/L (38-126) 01/31/24 14:49
Impression/Plan
-
Patient is an 78-year-old female
Fever/anorexia--unclear cause--urinalysis and chest x-ray not obtained on admission, will order--has history of previous urinary tract infection despite normal white blood cell count, patient does have fever/tachycardia and meets sepsis criteria by
definition--ADMIT--continue Rocephin and IV fluids--check chest x-ray, urinalysis with reflex to culture, blood cultures
Vascular dementia--continue buspirone and melatonin
CODE STATUS--full code
DVT prophylaxis
[2024-01-31 16:09] LABS: Platelet Count 178 10^3/uL (130-400)
[2024-01-31 16:43] LABS: Urine Bacteria Many (Negative); Urine White Cell 50-60 /HPF (0-5)
[2024-01-31] MEDS: NSS 1000 IV (18:31)
--- NOTE | 2024-01-31 19:14 | TRANSFER ---
Patient admitted into room 418-1 from ED, pulled over from stretcher to bed. AAOx0, unable to answer admission questions. Pt currently sleeping in no apparent distress. Rectal tylenol given for T 100.9. NSS running at 125 ml/hr per NOV. Bed locked
in lowest position.
[2024-01-31] MEDS: LOVENOX 30 MG SC (20:32)
[2024-01-31] MEDS: MELATONIN PO (22:59)
[2024-02-01] MEDS: NSS 1000 IV ×2 (02:51→11:14)
[2024-02-01 06:51] LABS: Hematocrit 26.5 % (37.0-47.0); Hemoglobin 8.8 g/dL (12.0-16.0); Mean Corp Hgb Conc. 33.2 g/dL (33.0-37.0); Mean Corpuscular Hgb 29.6 pg (27.0-31.0); Mean Corpuscular Volume 89.2 fL (81.0-99.0); Mean Platelet Volume 8.8 fL (7.4-10.4); Platelet Count 196 10^3/uL (130-400); Red Blood Cell Count 2.97 10^6/uL (4.20-5.40); Red Cell Dist. Width 13.2 % (11.5-14.5); White Blood Cell Count 7.5 10^3/uL (4.8-10.8)
[2024-02-01 07:20] LABS: ALT (SGPT) 11 U/L (0-35); AST (SGOT) 28 U/L (14-36); Albumin 2.8 g/dl (3.5-5.0); Alkaline Phosphatase 56 U/L (38-126); Blood Urea Nitrogen 13 mg/dl (7-17); Carbon Dioxide 22 mmol/L (22-30); Chloride 113 mmol/L (98-107); Estimated Creatinine Clearance 49 ml/min; Glucose 90 mg/dl (70-99); Magnesium 1.9 mg/dl (1.6-2.3); Potassium 4.1 mmol/L (3.5-5.1); Sodium 141 mmol/L (135-145); Total Bilirubin 1.1 mg/dl (0.2-1.3); Total Protein 5.2 g/dl (6.3-8.2); eGFR > 60.00
[2024-02-01 07:30] VITALS: BP 96/68
[2024-02-01 07:47] LABS: TSH 0.87 uIU/ml (0.47-4.68)
[2024-02-01 08:06] LABS: Vitamin B12 281 pg/ml (239-931)
[2024-02-01] MEDS: BUSPAR 15 MG PO (08:20)
--- NOTE | 2024-02-01 11:56 | W.PN.HOSP.TC ---
Today's Communication/Plan
-
repeat blodd cultures until clear
cont rocephin
cont IVF
Assessment / Plan
Assessment / Plan
Patient is an 78-year-old female
sepsis by criteria (Fever/anorexia)--UTI most likely with positive UA (has had recurrent UTIs in past)--continue Rocephin and IV fluids--blood culture positive for gm + cocci--await ID, may be contaminant
Vascular dementia--continue buspirone and melatonin
HX of C. diff
Hx of bilateral hip fractures with repair
Hx of fall with head trauma--had SAH, SDH with intraventricular hemorrhage--was transported to [facility] 09/2023--likely cause of progressed dementia faster than anticipated
CODE STATUS--DNR--spoke with daughter Daisy at bedside--pt has Aides coming in to [facility] plus what [facility] offers--perhaps Palliative Care or Hospice is appropriate at this stage....daughter interested in Palliative care....will ask CM to see
DVT prophylaxis
Anticipated Discharge: > 48 hours
Subjective/Interval History
-
Date of Service: February 01, 2024
pt mumbling--speech not consistent with my questions
Objective Data
-
Labs:
Laboratory Results
02/01/24
06:05
WBC 7.5
Hgb 8.8 L
Hct 26.5 L
Plt Count 196
Sodium 141
Potassium 4.1
Chloride 113 H
Carbon Dioxide 22
BUN 13
Creatinine 0.5 L
Glucose 90
Calcium 9.0
Total Bilirubin 1.1
AST 28
ALT 11
Alkaline Phosphatase 56
Vital Signs:
max temp for 24 hours
01/31/24
14:25
Temp 101.8 F H
Vital Signs
Temp Pulse Resp BP Pulse Ox
97.9 F 76 16 96/68 97
02/01/24 07:30 02/01/24 07:30 02/01/24 07:30 02/01/24 07:30 02/01/24 07:30
I&O
01/31/24 02/01/24 02/02/24
06:59 06:59 06:59
Intake Total 1500 / 1500
Balance 1500 / 1500
Review of Systems
-
Unable to obtain full review of systems at this time due to: Dementia
Physical Exam
-
General: Well Developed, Well Nourished, No Apparent Distress, Appears Chronically Ill and Cachectic
HEENT: Normocephalic and Atraumatic
Respiratory: Clear to Auscultation; Negative Wheezes, Rhonchi or Crackles
Cardiac: Regular Rhythm and S1/S2; Negative Murmur
GI: Soft, Nontender, Nondistended and Normal Bowel Sounds
Musculoskeletal: No Clubbing, No Cyanosis and No Edema
Neuro: Awake
[2024-02-01 12:55] VITALS: BP 135/55; PULSE 86; O2SAT 93
--- NOTE | 2024-02-01 12:59 | PTOTSP ---
SPEECH THERAPY SWALLOW EVALUATION:
Clinical signs of oropharyngeal dysphagia, likely chronic related to dementia and acutely exacerbated by sepsis and AMS. Patient remains at risk for aspiration given confusion. Recommend IDDSI Level 4 Puree diet and thin liquids. Meds crushed in
puree. Strict aspiration precautions includin:1 assist; Upright positioning; Small sips/bites; Slow rate of intake; Only feed when awake/alert; oral care 3x/day; Should pt exhibit signs or symptoms of aspiration or a decline in mental or
respiratory status, d/c oral diet and make NPO. NO straw. Speech therapy to follow, assess diet tolerance and modify as appropriate, monitor CXR and labs, provide continued pt/caregiver training regarding aspiration risks/precautions, and provide
continued diagnostic swallow therapy as appropriate.
RECOMMEND:
1) IDDSI Level 4 Puree diet and thin liquids
2) Meds crushed in puree
3) Strict aspiration precautions includin:1 assist; Upright positioning; Small sips/bites; Slow rate of intake; Only feed when awake/alert; oral care 3x/day; Should pt exhibit signs or symptoms of aspiration or a decline in mental or respiratory
status, d/c oral diet and make NPO. NO straw
4) Speech therapy to follow
[2024-02-01] MEDS: ROCEPHIN 1000 MG IV (14:30)
[2024-02-01] MEDS: STERILE WATER FOR INJECTION 10 ML IV (14:31)
--- NOTE | 2024-02-01 14:52 | CM ---
Spoke with daughter Daisy [facility].
Patient from Memory care at [facility].
patient is primarily WC bound, can ambulate with assistance.
Patient has private care givers 5 pm- 9pm every day.
Patient is getting PT at [facility], daughter would like to resume.
Daughter would prefer back to [facility] at time of d/c.
Daughter is also interested in palliative care at [facility] and would like a referral to [facility].
Pharmacy: [facility].
Plan: back to [facility] when stable with palliative care, PT (script) and private care givers thru [facility].
[2024-02-01 15:35] VITALS: BP 137/69
[2024-02-01] MEDS: LOVENOX 30 MG SC (16:38)
[2024-02-01] MEDS: MELATONIN PO (23:02)
[2024-02-01 23:35] VITALS: BP 127/73
[2024-02-02] MEDS: NSS 1000 IV (01:19)
[2024-02-02 06:00] VITALS: BMI 15.6
[2024-02-02 07:00] VITALS: BP 141/69
[2024-02-02] MEDS: BUSPAR 15 MG PO (07:22)
[2024-02-02 09:14] LABS: Hematocrit 27.9 % (37.0-47.0); Hemoglobin 9.8 g/dL (12.0-16.0); Mean Corp Hgb Conc. 35.1 g/dL (33.0-37.0); Mean Corpuscular Hgb 29.3 pg (27.0-31.0); Mean Corpuscular Volume 83.3 fL (81.0-99.0); Mean Platelet Volume 8.5 fL (7.4-10.4); Platelet Count 194 10^3/uL (130-400); Red Blood Cell Count 3.35 10^6/uL (4.20-5.40); White Blood Cell Count 4.9 10^3/uL (4.8-10.8)
[2024-02-02 09:32] LABS: Blood Urea Nitrogen 9 mg/dl (7-17); Calcium 8.9 mg/dl (8.4-10.2); Carbon Dioxide 21 mmol/L (22-30); Chloride 110 mmol/L (98-107); Estimated Creatinine Clearance 49 ml/min; Glucose 101 mg/dl (70-99); Magnesium 1.8 mg/dl (1.6-2.3); Potassium 3.2 mmol/L (3.5-5.1); Sodium 138 mmol/L (135-145); eGFR > 60.00
[2024-02-02] MEDS: KCL 270 MEQ IV (11:00)
--- NOTE | 2024-02-02 11:36 | W.PN.HOSP.TC ---
Addendum entered and electronically signed by Daisy Rogers MD 02/02/24 11:41:
hypokalemia--replete
Original Note:
Today's Communication/Plan
-
stop IVF
plan for return to [facility] if [facility] accepts--pt has aides that come in too
change to keflex at d/c
Assessment / Plan
Assessment / Plan
Patient is an 78-year-old female
sepsis by criteria (Fever/anorexia)--due to E. coli UTI--continue Rocephin and stop IV fluids--blood culture positive for gm + cocci--await identification, likely contaminant
Vascular dementia--continue buspirone and melatonin
at least underweight BMI, more likely severe protein calorie malnutrition
HX of C. diff
Hx of bilateral hip fractures with repair
Hx of fall with head trauma--had SAH, SDH with intraventricular hemorrhage--[facility]--likely cause of progressed dementia faster than anticipated
CODE STATUS--DNR--spoke with daughter Daisy at bedside--pt has Aides coming in to [facility] plus what [facility] offers--perhaps Palliative Care or Hospice is appropriate at this stage....daughter interested in Palliative care....will ask CM to see
DVT prophylaxis
Anticipated Discharge: Within 24 hours
Subjective/Interval History
-
Date of Service: February 02, 2024
pt still mumbles answers--no significant conversations
Objective Data
-
Labs:
Laboratory Results
02/02/24
09:07
WBC 4.9
Hgb 9.8 L
Hct 27.9 L
Plt Count 194
Sodium 138
Potassium 3.2 L
Chloride 110 H
Carbon Dioxide 21 L
BUN 9
Creatinine 0.4 L
Glucose 101 H
Calcium 8.9
Vital Signs:
max temp for 24 hours
02/01/24
23:35
Temp 98.9 F
Vital Signs
Temp Pulse Resp BP Pulse Ox
98.0 F 72 18 141/69 96
02/02/24 07:00 02/02/24 07:00 02/02/24 07:00 02/02/24 07:00 02/02/24 08:00
I&O
02/01/24 02/02/24 02/03/24
06:59 06:59 06:59
Intake Total 3975 / 3975
Balance 3975 / 3975
Review of Systems
-
Unable to obtain full review of systems at this time due to: Dementia
Physical Exam
-
General: Well Developed and Cachectic
HEENT: Normocephalic and Atraumatic
Respiratory: Clear to Auscultation; Negative Wheezes or Rhonchi
Cardiac: Regular Rhythm and S1/S2; Negative Murmur
GI: Soft, Nontender, Nondistended and Normal Bowel Sounds
Musculoskeletal: No Clubbing, No Cyanosis and No Edema
Skin: Warm
[2024-02-02 13:07] VITALS: BMI 15.7
[2024-02-02] MEDS: NSS IV (13:29)
[2024-02-02] MEDS: STERILE WATER FOR INJECTION 10 ML IV (14:41)
[2024-02-02] MEDS: ROCEPHIN 1000 MG IV (14:41)
[2024-02-02 15:00] VITALS: BP 143/90
--- NOTE | 2024-02-02 15:09 | CM ---
Daughter requesting copy of d/c instructions.
JOESPH explained d/c instructions are not completed until patient is discharged and requested they be sent to her.
CM asked daughter if she wanted copy of chart and she stated no.
Patient from [facility] an plan is back to [facility].
JOESPH explained a transfer packet will be sent with patient and report called by nursing.
[facility] will need to review patient clinicals and therapy notes prior to accepting back.
Will update [facility] that Palliative care has been consulted- referral sent (has daughters number for contacting).
JOESPH also gave daughter [facility] Palliative care phone number.
Daughter would also like therapy to follow patient at [facility], will request scripts from .
Plan: back to [facility] when medically cleared and accepted back by [facility].
[2024-02-02] MEDS: LOVENOX 30 MG SC (16:45)
[2024-02-02] MEDS: MELATONIN 5 MG PO (21:13)
[2024-02-02 23:21] VITALS: BP 146/98
[2024-02-03 07:30] LABS: Hematocrit 29.2 % (37.0-47.0); Hemoglobin 10.6 g/dL (12.0-16.0); Mean Corp Hgb Conc. 36.3 g/dL (33.0-37.0); Mean Corpuscular Hgb 29.8 pg (27.0-31.0); Mean Platelet Volume 9.6 fL (7.4-10.4); Platelet Count 221 10^3/uL (130-400); Red Blood Cell Count 3.56 10^6/uL (4.20-5.40); Red Cell Dist. Width 12.7 % (11.5-14.5); White Blood Cell Count 4.8 10^3/uL (4.8-10.8)
[2024-02-03 07:35] VITALS: BP 166/90
[2024-02-03 07:51] LABS: Blood Urea Nitrogen 7 mg/dl (7-17); Calcium 9.1 mg/dl (8.4-10.2); Carbon Dioxide 23 mmol/L (22-30); Chloride 106 mmol/L (98-107); Estimated Creatinine Clearance 49 ml/min; Glucose 95 mg/dl (70-99); Sodium 136 mmol/L (135-145); eGFR > 60.00
[2024-02-03] MEDS: BUSPAR 15 MG PO (09:02)
--- NOTE | 2024-02-03 09:28 | CM ---
Addendum entered by Monik Lewis 02/03/24 15:20:
[facility] accepting patient for transfer tomorrow. CM spoke with daughter and she agreed with plan at this time.
Plan; transfer to [facility] tomorrow am.
Addendum entered by Moink Lewis 02/03/24 13:20:
updated PT/OT assessment faxed to [facility] and CM updated patient daughter who will also reach out to [facility]. CM also sent referral to [facility] at request of patient daughter. Awaiting responses from [facility] and [facility].
Original Note:
CM called to [facility] to review patient prior level of functioning. Per Nurse at [facility] patient able to stand for pivot transfer and was a full one person transfer. CM requested updated therapy assessment to confirm level of care. [facility] to assess
and determine if able to accept back. CM will send clinicals as soon as updated notes available. Plan per patient family to return to [facility], will continue to follow discharge planning needs.
Plan; return to personal care; pending acceptance.
--- NOTE | 2024-02-03 12:30 | W.PN.HOSP.TC ---
Today's Communication/Plan
-
d/c planning
Assessment / Plan
Assessment / Plan
Patient is an 78-year-old female
sepsis by criteria (Fever/anorexia)--due to E. coli UTI--continue Rocephin and stop IV fluids--blood culture positive for coag neg staph (contaminant)--repeat blood cultures neg--change to keflex at d/c
Vascular dementia--continue buspirone and melatonin
at least underweight BMI, more likely severe protein calorie malnutrition
HX of C. diff
Hx of bilateral hip fractures with repair
Hx of fall with head trauma--had SAH, SDH with intraventricular hemorrhage--was transported to [facility] 09/2023--likely cause of progressed dementia faster than anticipated
CODE STATUS--DNR--spoke with daughter Daisy at bedside--pt has Aides coming in to [facility] plus what [facility] offers--perhaps Palliative Care or Hospice is appropriate at this stage....daughter interested in Palliative care....will ask CM to see
DVT prophylaxis
Anticipated Discharge: 24 - 48 hours
Subjective/Interval History
-
Date of Service: February 03, 2024
pt sleepy
Objective Data
-
Labs:
Laboratory Results
02/03/24
06:42
WBC 4.8
Hgb 10.6 L
Hct 29.2 L
Plt Count 221
Sodium 136
Potassium 4.0
Chloride 106
Carbon Dioxide 23
BUN 7
Creatinine 0.4 L
Glucose 95
Calcium 9.1
Vital Signs:
max temp for 24 hours
02/02/24
23:21
Temp 99.2 F
Vital Signs
Temp Pulse Resp BP Pulse Ox
98.1 F 92 18 166/90 95
02/03/24 07:35 02/03/24 07:35 02/03/24 07:35 02/03/24 07:35 02/03/24 07:35
I&O
02/02/24 02/03/24 02/04/24
06:59 06:59 06:59
Intake Total 3975 / 3975 1090 / 1090
Balance 3975 / 3975 1090 / 1090
Review of Systems
-
Unable to obtain full review of systems at this time due to: Dementia
Physical Exam
-
General: Appears Chronically Ill and Cachectic
HEENT: Normocephalic and Atraumatic
Respiratory: Clear to Auscultation; Negative Wheezes or Rhonchi
Cardiac: Regular Rhythm and S1/S2; Negative Murmur
GI: Soft, Nontender, Nondistended and Normal Bowel Sounds
Musculoskeletal: No Clubbing, No Cyanosis and No Edema
Neuro: Awake and Alert
[2024-02-03] MEDS: STERILE WATER FOR INJECTION 10 ML IV (13:47)
[2024-02-03] MEDS: ROCEPHIN 1000 MG IV (13:47)
[2024-02-03 15:31] VITALS: BP 149/91
--- NOTE | 2024-02-03 16:37 | PN.CDI ---
CDI
- -
CDI:
Physician Documentation Request
Admit Date: 02/01/24 10:59
Dear Doctor Ken,
Please review the following and provide your response in the progress notes.
Clinical Indicators:
Pt admitted with sepsis 2/2 UTI/ Severe protein calorie Malnutrition
Documented per wound care panel 01/30 right lateral foot pressure injury stage 1 .
Nutrition note 02/01, ' Skin- stage 1 R/lateral foot...'
Physician documentation of the type and location of wounds is required for compliant documentation. Based on the above clinical findings and your assessment, please provide the following in your progress note:
1. Location of the ulcer/wound, including laterality.
2. Type (etiology) of ulcer/wound:
- Pressure (decubitus) ulcer
- Non-pressure ulcer
- Other
Use of terms such as suspected, likely, concern for, or probable (associated with a specific diagnosis that is being evaluated, monitored, or treated as if it exists) are acceptable and can be coded in the inpatient setting, when documented at the
time of discharge.
Thank you,
Nicol Cloud RN
CDI Specialist
[place] [facility]
Please use your independent medical judgment in providing your response.
*Source: National Pressure Ulcer Advisory Panel (NPUAP)
[2024-02-03] MEDS: LOVENOX 30 MG SC (17:28)
[2024-02-03] MEDS: MELATONIN PO (23:04)
[2024-02-03 23:33] VITALS: BP 147/87
[2024-02-04 07:51] VITALS: BP 144/73
[2024-02-04] MEDS: BUSPAR 15 MG PO (08:39)
--- NOTE | 2024-02-04 12:13 | W.PN.HOSP.TC ---
Addendum entered and electronically signed by Aniyah Riggs MD 02/04/24 15:50:
right lateral foot pressure injury stage 1
-APPRECIATE WOUND CARE
Original Note:
Today's Communication/Plan
-
DC to SNF today
Assessment / Plan
Assessment / Plan
Patient is an 78-year-old female
sepsis by criteria (Fever/anorexia)--due to E. coli UTI--continue Rocephin and stop IV fluids--blood culture positive for coag neg staph (contaminant)--repeat blood cultures neg--change to keflex at d/c - 3 more days (5 more pills)
Vascular dementia--continue buspirone and melatonin
at least underweight BMI, more likely severe protein calorie malnutrition
HX of C. diff
Hx of bilateral hip fractures with repair
Hx of fall with head trauma--had SAH, SDH with intraventricular hemorrhage--was transported to [facility] 09/2023--likely cause of progressed dementia faster than anticipated
CODE STATUS--DNR--spoke with daughter Daisy at bedside--pt has Aides coming in to [facility] plus what [facility] offers--perhaps Palliative Care or Hospice is appropriate at this stage....daughter interested in Palliative care....will ask CM to see
DVT prophylaxis
Anticipated Discharge: Today
Subjective/Interval History
-
Date of Service: February 04, 2024
no new complaints
apparent dementia
Objective Data
-
Vital Signs:
Vital Signs
Temp Pulse Resp BP Pulse Ox
99.1 F 76 18 144/73 97
02/04/24 07:51 02/04/24 07:51 02/04/24 07:51 02/04/24 07:51 02/04/24 08:00
I&O
02/03/24 02/04/24 02/05/24
06:59 06:59 06:59
Intake Total 1090 / 1090 0 / 0
Balance 1089 0 / 0
Review of Systems
-
Unable to obtain full review of systems at this time due to: Dementia
History Source: Patient
Physical Exam
-
General: Appears Chronically Ill and Cachectic
HEENT: Normocephalic and Atraumatic
Respiratory: Clear to Auscultation; Negative Wheezes or Rhonchi
Cardiac: Regular Rhythm and S1/S2; Negative Murmur
GI: Soft, Nontender, Nondistended and Normal Bowel Sounds
Musculoskeletal: No Clubbing, No Cyanosis and No Edema
Neuro: Awake and Alert
Data Reviewed
-
Diagnostic Radiology: Report Reviewed by me
Labs: Labs Reviewed by me
--- NOTE | 2024-02-04 12:16 | W.DS.TRANS ---
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
-
Discharge Instructions:
Discharge Diagnosis/Procedures Sepsis due to Escherichia coli urinary tract
infection, vascular dementia, underweight BMI,
history of C. difficile, history of bilateral
hip fractures with repair, history of fall with
head trauma in September 2023
Diet As tolerated
Activity As tolerated
Driving Restrictions No driving
Bathing Restrictions None
Instructions:
Stand-Alone Forms:
Changes to Home Medications: Yes
Discharge Medications:
DC Medications w/original date entered in [facility]
buspirone 15 mg tablet 15 mg PO DAILY Mental Health/Anxiety 08/01/22
dimethicone 1 % topical cream (Remedy Nutrashield) 1 applic topical BID Skin Issues 01/31/24
melatonin 5 mg chewable tablet 5 mg PO HS Sleep 01/31/24
cephalexin 500 mg capsule 500 mg PO BID #5 caps 02/04/24
Home Medication Changes
Addition 3 more days Keflex
Pending Results: No
--- NOTE | 2024-02-04 12:51 | CM ---
Addendum entered by Monik Lewis 02/04/24 13:07:
Nurse updated CM that patient with new fever and unable to go. CM confirmed that physician had updated daughter about delay in discharge. CM updated facility.
Original Note:
Patient is for transfer to [facility] today. Physician completed discharge order. Patient for discharge to [facility] via ambulance due to confusion/dementia. Please call report to [phone]/fax [phone] or [phone]. CM will send IMM to daughter
email. CM will continue to follow for discharge planning needs.
Plan; STC at [facility] then return to [facility].
--- NOTE | 2024-02-04 12:56 | W.PN.UPDATE ---
Addendum entered and electronically signed by Aniyah Riggs MD 02/04/24 16:46:
CXR with possible PNA. With new fever, will broaden antibiotics to IV Unasyn.
covid and flu negative
Original Note:
Update Note
Progress Note Update
patient with new fever 100.5
will need to cancel DC
check flu, covid, UA and CXR
resume IV Ceftriaxone for now
Daughter updated
[2024-02-04 13:14] LABS: % Basophils 0.4 % (0-2); % Eosinophils 0.7 % (0-6); % Immature Granulocytes 0.4 % (0-0.5); % Lymphocytes 7.5 % (20.5-51.1); % Monocytes 12.4 % (1.7-9.3); % Neutrophils 78.6 % (42.2-75.2); Absolute Lymphocytes 0.4 10^3/uL (1.2-3.4); Absolute Monocytes 0.7 10^3/uL (0.1-0.6); Absolute Neutrophils 4.3 10^3/uL (1.4-6.5); Hematocrit 31.2 % (37.0-47.0); Hemoglobin 10.5 g/dL (12.0-16.0); Mean Corp Hgb Conc. 33.7 g/dL (33.0-37.0); Mean Corpuscular Hgb 28.9 pg (27.0-31.0); Mean Platelet Volume 8.4 fL (7.4-10.4); Nucleated Red Blood Cells % 0 %; Platelet Count 277 10^3/uL (130-400); Red Blood Cell Count 3.63 10^6/uL (4.20-5.40); Red Cell Dist. Width 12.9 % (11.5-14.5); White Blood Cell Count 5.5 10^3/uL (4.8-10.8)
[2024-02-04 13:36] LABS: COVID-19 Antigen Negative (Negative)
[2024-02-04] MEDS: TYLENOL 650 MG PO (13:41)
[2024-02-04] MEDS: ROCEPHIN 1000 MG IV (13:47)
[2024-02-04] MEDS: STERILE WATER FOR INJECTION 10 ML IV (13:48)
[2024-02-04 14:05] LABS: Procalcitonin < 0.05 ng/ml (0.0-0.25)
[2024-02-04 15:12] LABS: Blood Urea Nitrogen 17 mg/dl (7-17); Calcium 9.1 mg/dl (8.4-10.2); Carbon Dioxide 28 mmol/L (22-30); Chloride 103 mmol/L (98-107); Estimated Creatinine Clearance 49 ml/min; Glucose 126 mg/dl (70-99); Potassium 3.1 mmol/L (3.5-5.1); Sodium 140 mmol/L (135-145); eGFR > 60.00
--- NOTE | 2024-02-04 15:45 | PN.CDI ---
CDI
- -
CDI:
Physician Documentation Request
Admit Date: 02/01/24 10:59
Dear Doctor
Please review the following and provide your response in the progress notes.
Clinical Indicators:
Pt admitted with sepsis 2/2 UTI/ Severe protein calorie Malnutrition
Documented per wound care panel 01/30 right lateral foot pressure injury stage 1 .
Nutrition note 02/01, ' Skin- stage 1 R/lateral foot...'
Physician documentation of the type and location of wounds is required for compliant documentation. Based on the above clinical findings and your assessment, please provide the following in your progress note:
1. Location of the ulcer/wound, including laterality.
2. Type (etiology) of ulcer/wound:
- Pressure (decubitus) ulcer
- Non-pressure ulcer
- Other
Use of terms such as suspected, likely, concern for, or probable (associated with a specific diagnosis that is being evaluated, monitored, or treated as if it exists) are acceptable and can be coded in the inpatient setting, when documented at the
time of discharge.
Thank you,
Nicol Cloud RN
CDI Specialist
[place] [facility]
Please use your independent medical judgment in providing your response.
*Source: National Pressure Ulcer Advisory Panel (NPUAP)
[2024-02-04 15:47] VITALS: BP 110/77
[2024-02-04] MEDS: KLOR-CON 40 MEQ PO (17:21)
[2024-02-04] MEDS: LOVENOX 30 MG SC (17:21)
[2024-02-04] MEDS: UNASYN IV (17:29)
[2024-02-04 17:56] LABS: Urine Albumin Trace (Neg - Trace); Urine Bilirubin 1+ (Negative); Urine Character Clear (Clear); Urine Color Yellow; Urine Glucose Negative (Negative); Urine Ketone 3+ (Negative); Urine Leukocyte Trace (Negative); Urine Nitrite Negative (Negative); Urine Occult Blood Negative (Negative); Urine Urobilinogen Negative (Neg - 1+)
[2024-02-04 18:03] LABS: Urine Squamous Cell 16-20 /LPF (Few)
[2024-02-04 18:04] LABS: Urine Bacteria Moderate (Negative); Urine Red Blood Cell 0-2 /HPF (0-2)
[2024-02-04] MEDS: MELATONIN 5 MG PO (20:37)
[2024-02-04 23:11] VITALS: BP 116/77
[2024-02-05] MEDS: UNASYN IV ×4 (00:55→16:54)
[2024-02-05 06:25] LABS: % Basophils 0.2 % (0-2); % Eosinophils 1.4 % (0-6); % Immature Granulocytes 0.2 % (0-0.5); % Lymphocytes 9.5 % (20.5-51.1); % Monocytes 12.5 % (1.7-9.3); % Neutrophils 76.2 % (42.2-75.2); Absolute Eosinophils 0.1 10^3/uL (0-0.7); Absolute Lymphocytes 0.4 10^3/uL (1.2-3.4); Absolute Monocytes 0.5 10^3/uL (0.1-0.6); Absolute Neutrophils 3.3 10^3/uL (1.4-6.5); Hematocrit 27.8 % (37.0-47.0); Hemoglobin 9.4 g/dL (12.0-16.0); Mean Corp Hgb Conc. 33.8 g/dL (33.0-37.0); Mean Corpuscular Hgb 29.3 pg (27.0-31.0); Mean Corpuscular Volume 86.6 fL (81.0-99.0); Mean Platelet Volume 8.5 fL (7.4-10.4); Nucleated Red Blood Cells % 0 %; Platelet Count 264 10^3/uL (130-400); Red Blood Cell Count 3.21 10^6/uL (4.20-5.40); Red Cell Dist. Width 12.9 % (11.5-14.5); White Blood Cell Count 4.3 10^3/uL (4.8-10.8)
[2024-02-05 06:50] LABS: Blood Urea Nitrogen 19 mg/dl (7-17); Carbon Dioxide 29 mmol/L (22-30); Chloride 106 mmol/L (98-107); Estimated Creatinine Clearance 49 ml/min; Glucose 107 mg/dl (70-99); Potassium 3.3 mmol/L (3.5-5.1); Sodium 142 mmol/L (135-145); eGFR > 60.00
[2024-02-05 07:00] VITALS: BP 129/71
[2024-02-05] MEDS: KCL 270 MEQ IV (08:44)
[2024-02-05] MEDS: BUSPAR 15 MG PO (08:45)
[2024-02-05 11:21] VITALS: BP 136/78; PULSE 83; O2SAT 97
--- NOTE | 2024-02-05 14:05 | CM ---
Addendum entered by Monik Lewis 02/05/24 14:11:
Please call report to [phone]/fax [phone] or [phone].
Original Note:
Patient seen at bedside with physician. Patient for transfer to SNF today. CM updated admissions and will confirm with daughter. CM will continue to follow for discharge planning needs.
Plan; SNF today.
--- NOTE | 2024-02-05 14:08 | W.PN.HOSP.TC ---
Today's Communication/Plan
-
d/c
Assessment / Plan
Assessment / Plan
Patient is an 78-year-old female
ok for d/c
sepsis by criteria (Fever/anorexia)--due to E. coli UTI--continue Rocephin and stop IV fluids--blood culture positive for coag neg staph (contaminant)--repeat blood cultures neg--change to keflex at d/c - 3 more days (5 more pills)
Vascular dementia--continue buspirone and melatonin
at least underweight BMI, more likely severe protein calorie malnutrition
HX of C. diff
Hx of bilateral hip fractures with repair
Hx of fall with head trauma--had SAH, SDH with intraventricular hemorrhage--was transported to [facility] 09/2023--likely cause of progressed dementia faster than anticipated
CODE STATUS--DNR--spoke with daughter Daisy at bedside--pt has Aides coming in to [place] plus what [facility] offers--perhaps Palliative Care or Hospice is appropriate at this stage....daughter interested in Palliative care....will ask to see
DVT prophylaxis
Anticipated Discharge: Today
Subjective/Interval History
-
Date of Service: February 05, 2024
pt more awake--eyes open
Objective Data
-
Labs:
Laboratory Results
02/05/24
05:46
WBC 4.3 L
Hgb 9.4 L
Hct 27.8 L
Plt Count 264
Sodium 142
Potassium 3.3 L
Chloride 106
Carbon Dioxide 29
BUN 19 H
Creatinine 0.6
Glucose 107 H
Calcium 9.0
Vital Signs:
max temp for 24 hours
02/04/24
12:57
Temp 100.5 F H
Vital Signs
Temp Pulse Resp BP Pulse Ox
97.3 F 77 16 129/71 99
05/22/24 07:00 02/05/24 07:00 02/05/24 07:00 02/05/24 07:00 02/05/24 08:00
I&O
02/04/24 02/05/24 02/06/24
06:59 06:59 06:59
Intake Total 0 / 0
Output Total 220 / 220
Balance 0 / 0 -220 / -220
Review of Systems
-
All other systems: Reviewed and negative
Physical Exam
-
General: Well Developed and Well Nourished
HEENT: Normocephalic and Atraumatic
Respiratory: Clear to Auscultation; Negative Wheezes or Rhonchi
Cardiac: Regular Rhythm and S1/S2; Negative Murmur
GI: Soft, Nontender, Nondistended and Normal Bowel Sounds
Psych: Apparent Dementia
[2024-02-05 15:00] VITALS: BP 119/87
[2024-02-05] MEDS: LOVENOX 30 MG SC (16:55)
--- NOTE | 2024-02-05 17:14 | W.DCSUMMARY ---
Discharge Summary
Discharge Data
Date of Admission: 02/01/24
Date of Discharge: 02/05/24
-
Pending Results: No
Hospital Course
Primary care physician : Not Listed
Principal Discharge diagnosis : Sepsis due to Escherichia coli urinary tract infection
Chronic Discharge diagnosis : Vascular dementia, underweight BMI, history of C. difficile, history of falls with bilateral hip fractures and repair, history of fall with head trauma (subarachnoid hemorrhage, subdural hemorrhage)
Hospital Course : Patient is an 78-year-old female who did not contribute at all to her medical history or why she was here. Records from the emergency department noted that the patient had dementia and was from [facility] assisted living. She had
decreased p.o. intake and fevers. Subsequently, daughter stated that if she does not eat that is how they know that something is 'off'. Workup in the emergency department showed a normal white blood cell count, COVID and influenza were negative.
Patient was initially brought in as observation and later changed to inpatient.
Problem #1: Sepsis due to Escherichia coli urinary tract infection. Once urinalysis was obtained, it was positive. Chest x-ray once obtained was negative. Patient was started on broad-spectrum antibiotics and urine culture was positive for
Escherichia coli. Blood cultures showed 1 of 2 bottles on admission with a coagulase-negative staph. This is a contaminant and not a real finding. Subsequent blood cultures were negative. Patient was transitioned over to cephalexin to complete
her course of therapy.
Problem #2: All other medical issues. These include Vascular dementia, underweight BMI, history of C. difficile, history of falls with bilateral hip fractures and repair, history of fall with head trauma (subarachnoid hemorrhage, subdural
hemorrhage). These medical issues were stable during her hospitalization. Medications were continued as able.
Patient is stable for discharge to the detention facility at this time. If there are any questions regarding this dictation or her hospital stay, please and hesitate to call. Our office number is [phone].
Discharge Plan
-
Patient Disposition: Correction/SNF
Discharge Diagnosis/Procedures: Sepsis due to Escherichia coli urinary tract infection, vascular dementia, underweight BMI, history of C. difficile, history of bilateral hip fractures with repair, history of fall with head trauma in September 2023
Condition: Fair
Diet: As tolerated
Additional Diets: RECOMMEND:
1) IDDSI Level 4 Puree diet and thin liquids
2) Meds crushed in puree
3) Strict aspiration precautions includin:1 assist; Upright positioning; Small sips/bites; Slow rate of intake; Only feed when awake/alert; oral care 3x/day; Should pt exhibit signs or symptoms of aspiration or a decline in mental or respiratory
status, d/c oral diet and make NPO. NO straw
4) Speech therapy to follow
Activity: As tolerated
Driving Restrictions: No driving
Bathing Restrictions: None
Referrals:
UNKNOWN - PT NOT,INTERVIEWE [Family Provider] - in less than 1 week
Prescriptions:
New
cephalexin 500 mg Capsule
500 mg PO BID Qty: 5 0RF
Continued
buspirone 15 mg tablet
15 mg PO DAILY
melatonin 5 mg Tablet,Chewable
5 mg PO HS
Remedy Nutrashield 1 % Cream
1 applic TOPICAL BID
Patient Comments:
01/31/2024: apply to affected areas
Discharge Orders:
Discharge Patient (As Directed); Ordered 02/05/24
Ordered By: Daisy Rogers
Discharge Date and Time
Print Language: EQUATORIAL [place]INE[place]
== END 2024-02-05 18:50 | DRG 871 ==
LOC: 4 WEST ACU 10:59
PROVIDERS: Student in an Organized Health Care Education/Training Program; ADMITTING PHYSICIAN Internal Medicine; EMERGENCY PHYSICIAN Emergency Medicine
DX: A41.51 Sepsis due to Escherichia coli [E. coli] (principal); E43 Unspecified severe protein-calorie malnutrition; Z68.1 Body mass index [BMI] 19.9 or less, adult; N39.0 Urinary tract infection, site not specified; Z11.52 Encounter for screening for COVID-19; F01.50 Vascular dementia, unspecified severity, without behavioral disturbance, psychotic disturbance, mood disturbance, and anxiety; E87.6 Hypokalemia; L89.891 Pressure ulcer of other site, stage 1
CPT/HCPCS: 71045; 71046; 80048; 80053; 81003; 81015; 82607; 83605; 83735; 84145; 84443; 85025; 85027; 87040; 87070; 87086; 87088; 87150; 87186; 87205; 87502; 87811; 92526; 92610; 96374; 97162; 97166; 97530; 97535; 99291

== ENCOUNTER → 2024-02-11 11:31 | Outpatient (REF) | payer MEDICARE, OTHER, SELFPAY ==
[2024-02-11 12:55] LABS: Blood Urea Nitrogen 21 mg/dl (7-17); Carbon Dioxide 28 mmol/L (22-30); Chloride 103 mmol/L (98-107); Glucose 92 mg/dl (70-99); Potassium 4.5 mmol/L (3.5-5.1); Sodium 136 mmol/L (135-145); eGFR > 60.00
== END ==
LOC: OLABP 11:31
PROVIDERS: ATTENDING PHYSICIAN Student in an Organized Health Care Education/Training Program
DX: E87.6 Hypokalemia (principal); M62.81 Muscle weakness (generalized); F01.50 Vascular dementia, unspecified severity, without behavioral disturbance, psychotic disturbance, mood disturbance, and anxiety; E43 Unspecified severe protein-calorie malnutrition; R64 Cachexia; L89.511 Pressure ulcer of right ankle, stage 1
CPT/HCPCS: 36415; 80048

== ENCOUNTER → 2024-04-01 09:47 | Outpatient (REF) | payer MEDICARE, OTHER, SELFPAY ==
[2024-04-01 16:27] LABS: % Basophils 0.2 % (0-2); % Eosinophils 1.2 % (0-6); % Immature Granulocytes 1.7 % (0-0.5); % Lymphocytes 19.8 % (20.5-51.1); % Monocytes 9.7 % (1.7-9.3); % Neutrophils 67.4 % (42.2-75.2); Absolute Eosinophils 0.1 10^3/uL (0-0.7); Absolute Immature Granulocytes 0.1 10^3/uL (0-0.05); Absolute Monocytes 0.5 10^3/uL (0.1-0.6); Absolute Neutrophils 3.3 10^3/uL (1.4-6.5); Hematocrit 34.1 % (37.0-47.0); Hemoglobin 11.2 g/dL (12.0-16.0); Mean Corp Hgb Conc. 32.8 g/dL (33.0-37.0); Mean Corpuscular Hgb 29.8 pg (27.0-31.0); Mean Corpuscular Volume 90.7 fL (81.0-99.0); Mean Platelet Volume 9.1 fL (7.4-10.4); Nucleated Red Blood Cells % 0 %; Platelet Count 261 10^3/uL (130-400); Red Blood Cell Count 3.76 10^6/uL (4.20-5.40); Red Cell Dist. Width 14.2 % (11.5-14.5); White Blood Cell Count 4.8 10^3/uL (4.8-10.8)
[2024-04-01 16:44] LABS: ALT (SGPT) 20 U/L (0-35); AST (SGOT) 24 U/L (14-36); Alkaline Phosphatase 49 U/L (38-126); Blood Urea Nitrogen 33 mg/dl (7-17); Calcium 9.9 mg/dl (8.4-10.2); Carbon Dioxide 26 mmol/L (22-30); Chloride 106 mmol/L (98-107); Creatine Phosphokinase 49 U/L (30-135); Glucose 101 mg/dl (70-99); Potassium 4.3 mmol/L (3.5-5.1); Sodium 139 mmol/L (135-145); Total Bilirubin 0.8 mg/dl (0.2-1.3); Total Protein 6.2 g/dl (6.3-8.2); eGFR > 60.00
[2024-04-01 17:15] LABS: TSH 2.53 uIU/ml (0.47-4.68)
[2024-04-02 12:19] LABS: Medical Necessity Pt Refused Hgba1c
== END ==
LOC: OLABP 09:47
PROVIDERS: ATTENDING PHYSICIAN Family Medicine; FAMILY PHYSICIAN Student in an Organized Health Care Education/Training Program
DX: E87.6 Hypokalemia (principal); M62.81 Muscle weakness (generalized); F01.50 Vascular dementia, unspecified severity, without behavioral disturbance, psychotic disturbance, mood disturbance, and anxiety; E43 Unspecified severe protein-calorie malnutrition; R64 Cachexia; L89.511 Pressure ulcer of right ankle, stage 1; A41.9 Sepsis, unspecified organism; N39.0 Urinary tract infection, site not specified; B96.20 Unspecified Escherichia coli [E. coli] as the cause of diseases classified elsewhere
CPT/HCPCS: 36415; 80053; 82550; 84443; 85025

== ENCOUNTER → 2024-04-02 12:00 | Outpatient (REF) | payer MEDICARE, OTHER, SELFPAY ==
[2024-04-03 12:10] LABS: Urine Albumin Negative (Neg - Trace); Urine Bilirubin Negative (Negative); Urine Character Clear (Clear); Urine Color Yellow; Urine Glucose Negative (Negative); Urine Ketone Trace (Negative); Urine Leukocyte Negative (Negative); Urine Nitrite Negative (Negative); Urine Occult Blood Negative (Negative); Urine Urobilinogen Negative (Neg - 1+)
== END ==
LOC: OLABP 12:00
PROVIDERS: ATTENDING PHYSICIAN Family Medicine
DX: N39.0 Urinary tract infection, site not specified (principal); E43 Unspecified severe protein-calorie malnutrition; M62.81 Muscle weakness (generalized)
CPT/HCPCS: 36415; 81003; 87086

== ENCOUNTER → 2024-04-14 10:34 | Outpatient (REF) | payer MEDICARE, OTHER, SELFPAY ==
[2024-04-14 11:38] LABS: % Basophils 0.5 % (0-2); % Eosinophils 1.3 % (0-6); % Immature Granulocytes 0.9 % (0-0.5); % Lymphocytes 10.6 % (20.5-51.1); % Monocytes 10.3 % (1.7-9.3); % Neutrophils 76.4 % (42.2-75.2); ALT (SGPT) 12 U/L (0-35); AST (SGOT) 18 U/L (14-36); Absolute Eosinophils 0.1 10^3/uL (0-0.7); Absolute Immature Granulocytes 0.1 10^3/uL (0-0.05); Absolute Lymphocytes 0.6 10^3/uL (1.2-3.4); Absolute Monocytes 0.6 10^3/uL (0.1-0.6); Absolute Neutrophils 4.2 10^3/uL (1.4-6.5); Albumin 3.7 g/dl (3.5-5.0); Alkaline Phosphatase 102 U/L (38-126); Blood Urea Nitrogen 32 mg/dl (7-17); Calcium 9.6 mg/dl (8.4-10.2); Carbon Dioxide 29 mmol/L (22-30); Chloride 105 mmol/L (98-107); Glucose 112 mg/dl (70-99); Hematocrit 32.5 % (37.0-47.0); Hemoglobin 11.2 g/dL (12.0-16.0); Mean Corp Hgb Conc. 34.5 g/dL (33.0-37.0); Mean Corpuscular Hgb 30.5 pg (27.0-31.0); Mean Corpuscular Volume 88.6 fL (81.0-99.0); Mean Platelet Volume 8.5 fL (7.4-10.4); Nucleated Red Blood Cells % 0 %; Platelet Count 412 10^3/uL (130-400); Potassium 4.5 mmol/L (3.5-5.1); Red Blood Cell Count 3.67 10^6/uL (4.20-5.40); Red Cell Dist. Width 13.4 % (11.5-14.5); Sodium 137 mmol/L (135-145); Total Bilirubin 0.7 mg/dl (0.2-1.3); Total Protein 6.1 g/dl (6.3-8.2); White Blood Cell Count 5.5 10^3/uL (4.8-10.8); eGFR > 60.00
== END ==
LOC: OLABPG 10:34
PROVIDERS: ATTENDING PHYSICIAN Family Medicine
DX: E87.6 Hypokalemia (principal); M62.81 Muscle weakness (generalized); F01.50 Vascular dementia, unspecified severity, without behavioral disturbance, psychotic disturbance, mood disturbance, and anxiety; E43 Unspecified severe protein-calorie malnutrition; R64 Cachexia; L89.511 Pressure ulcer of right ankle, stage 1; A41.9 Sepsis, unspecified organism; N39.0 Urinary tract infection, site not specified; B96.20 Unspecified Escherichia coli [E. coli] as the cause of diseases classified elsewhere
CPT/HCPCS: 36415; 80053; 85025

== ENCOUNTER → 2024-08-03 12:33 | Outpatient (REF) | payer MEDICARE, OTHER, SELFPAY ==
[2024-08-03 12:52] LABS: % Eosinophils 2.9 % (0-6); % Lymphocytes 25.8 % (20.5-51.1); % Neutrophils 59.3 % (42.2-75.2); Absolute Eosinophils 0.1 10^3/uL (0-0.7); Absolute Monocytes 0.4 10^3/uL (0.1-0.6); Absolute Neutrophils 2.3 10^3/uL (1.4-6.5); Hematocrit 34.4 % (37.0-47.0); Hemoglobin 11.6 g/dL (12.0-16.0); Mean Corp Hgb Conc. 33.7 g/dL (33.0-37.0); Mean Corpuscular Hgb 30.1 pg (27.0-31.0); Mean Corpuscular Volume 89.1 fL (81.0-99.0); Nucleated Red Blood Cells % 0 %; Platelet Count 264 10^3/uL (130-400); Red Blood Cell Count 3.86 10^6/uL (4.20-5.40); Red Cell Dist. Width 13.6 % (11.5-14.5); White Blood Cell Count 3.8 10^3/uL (4.8-10.8)
[2024-08-03 14:06] LABS: ALT (SGPT) 12 U/L (0-35); AST (SGOT) 16 U/L (14-36); Albumin 3.4 g/dl (3.5-5.0); Alkaline Phosphatase 33 U/L (38-126); Blood Urea Nitrogen 26 mg/dl (7-17); Calcium 9.3 mg/dl (8.4-10.2); Carbon Dioxide 25 mmol/L (22-30); Chloride 105 mmol/L (98-107); Glucose 82 mg/dl (70-99); Potassium 4.6 mmol/L (3.5-5.1); Sodium 140 mmol/L (135-145); Total Bilirubin 0.5 mg/dl (0.2-1.3); Total Protein 5.7 g/dl (6.3-8.2); eGFR > 60.00
== END ==
LOC: OLABP 12:33
PROVIDERS: ATTENDING PHYSICIAN Family Medicine
DX: E87.6 Hypokalemia (principal); M62.81 Muscle weakness (generalized); F01.50 Vascular dementia, unspecified severity, without behavioral disturbance, psychotic disturbance, mood disturbance, and anxiety; E43 Unspecified severe protein-calorie malnutrition; R64 Cachexia; L89.511 Pressure ulcer of right ankle, stage 1; A41.9 Sepsis, unspecified organism; N39.0 Urinary tract infection, site not specified; B96.20 Unspecified Escherichia coli [E. coli] as the cause of diseases classified elsewhere
CPT/HCPCS: 36415; 80053; 85025

== ENCOUNTER → 2024-11-02 10:27 | Outpatient (REF) | payer MEDICARE, OTHER, SELFPAY ==
[2024-11-02 11:22] LABS: % Basophils 0.5 % (0-2); % Eosinophils 3.3 % (0-6); % Immature Granulocytes 0.3 % (0-0.5); % Lymphocytes 29.5 % (20.5-51.1); % Monocytes 10.6 % (1.7-9.3); % Neutrophils 55.8 % (42.2-75.2); Absolute Eosinophils 0.1 10^3/uL (0-0.7); Absolute Lymphocytes 1.1 10^3/uL (1.2-3.4); Absolute Monocytes 0.4 10^3/uL (0.1-0.6); Absolute Neutrophils 2.1 10^3/uL (1.4-6.5); Hematocrit 38.4 % (37.0-47.0); Hemoglobin 12.7 g/dL (12.0-16.0); Mean Corp Hgb Conc. 33.1 g/dL (33.0-37.0); Mean Corpuscular Hgb 30.2 pg (27.0-31.0); Mean Corpuscular Volume 91.2 fL (81.0-99.0); Mean Platelet Volume 9.2 fL (7.4-10.4); Nucleated Red Blood Cells % 0 %; Platelet Count 185 10^3/uL (130-400); Red Blood Cell Count 4.21 10^6/uL (4.20-5.40); Red Cell Dist. Width 13.8 % (11.5-14.5); White Blood Cell Count 3.7 10^3/uL (4.8-10.8)
[2024-11-02 11:40] LABS: ALT (SGPT) 61 U/L (0-35); AST (SGOT) 32 U/L (14-36); Albumin 3.6 g/dl (3.5-5.0); Alkaline Phosphatase 53 U/L (38-126); Blood Urea Nitrogen 36 mg/dl (7-17); Calcium 9.4 mg/dl (8.4-10.2); Carbon Dioxide 26 mmol/L (22-30); Chloride 112 mmol/L (98-107); Glucose 87 mg/dl (70-99); Potassium 4.4 mmol/L (3.5-5.1); Sodium 144 mmol/L (135-145); Total Bilirubin 1.8 mg/dl (0.2-1.3); eGFR > 60.00
== END ==
LOC: OLABP 10:27
DX: E87.6 Hypokalemia (principal); M62.81 Muscle weakness (generalized); F01.50 Vascular dementia, unspecified severity, without behavioral disturbance, psychotic disturbance, mood disturbance, and anxiety; R64 Cachexia; L89.511 Pressure ulcer of right ankle, stage 1; A41.9 Sepsis, unspecified organism; N39.0 Urinary tract infection, site not specified; B96.20 Unspecified Escherichia coli [E. coli] as the cause of diseases classified elsewhere
CPT/HCPCS: 36415; 80053; 85025

== ENCOUNTER → 2025-02-01 10:13 | Outpatient (REF) | payer MEDICARE, OTHER, SELFPAY ==
[2025-02-01 11:12] LABS: % Basophils 0.8 % (0-2); % Eosinophils 1.7 % (0-6); % Immature Granulocytes 0.2 % (0-0.5); % Lymphocytes 27.9 % (20.5-51.1); % Monocytes 7.9 % (1.7-9.3); % Neutrophils 61.5 % (42.2-75.2); Absolute Eosinophils 0.1 10^3/uL (0-0.7); Absolute Lymphocytes 1.5 10^3/uL (1.2-3.4); Absolute Monocytes 0.4 10^3/uL (0.1-0.6); Absolute Neutrophils 3.2 10^3/uL (1.4-6.5); Mean Corp Hgb Conc. 32.5 g/dL (33.0-37.0); Mean Corpuscular Hgb 31.3 pg (27.0-31.0); Mean Corpuscular Volume 96.4 fL (81.0-99.0); Mean Platelet Volume 10.2 fL (7.4-10.4); Nucleated Red Blood Cells % 0 %; Platelet Count 201 10^3/uL (130-400); Red Blood Cell Count 4.15 10^6/uL (4.20-5.40); Red Cell Dist. Width 13.4 % (11.5-14.5); White Blood Cell Count 5.2 10^3/uL (4.8-10.8)
[2025-02-01 11:46] LABS: ALT (SGPT) 77 U/L (0-35); AST (SGOT) 41 U/L (14-36); Albumin 3.8 g/dl (3.5-5.0); Alkaline Phosphatase 41 U/L (38-126); Blood Urea Nitrogen 40 mg/dl (7-17); Calcium 9.7 mg/dl (8.4-10.2); Carbon Dioxide 29 mmol/L (22-30); Chloride 126 mmol/L (98-107); Glucose 89 mg/dl (70-99); Potassium 4.1 mmol/L (3.5-5.1); Sodium 159 mmol/L (135-145); Total Bilirubin 1.3 mg/dl (0.2-1.3); Total Protein 6.3 g/dl (6.3-8.2); eGFR > 60.00
== END ==
LOC: OLABP 10:13
PROVIDERS: ATTENDING PHYSICIAN Student in an Organized Health Care Education/Training Program
DX: E87.6 Hypokalemia (principal); M62.81 Muscle weakness (generalized); F01.50 Vascular dementia, unspecified severity, without behavioral disturbance, psychotic disturbance, mood disturbance, and anxiety; E43 Unspecified severe protein-calorie malnutrition; R64 Cachexia; L89.511 Pressure ulcer of right ankle, stage 1; A41.9 Sepsis, unspecified organism; N39.0 Urinary tract infection, site not specified; B96.20 Unspecified Escherichia coli [E. coli] as the cause of diseases classified elsewhere
CPT/HCPCS: 36415; 80053; 85025